=== PATIENT | male | born 1945 | race Caucasian/White ===

== ENCOUNTER 2017-01-30 21:48 | Inpatient (IN) | payer MEDICARE ==
--- NOTE | ~2017-01-30 | IDS ---
Interim Discharge Summary [facility] [address] [place]. [address] NAME: NO IRWIN : 43 STATUS : ADM IN PAT#: [id number] AGE: 71 ADM/REG DATE : 01/31/17 MR#: [id number] REPORT SERV DATE: 02/15/17 DICTATED BY: DATE: REPORT STATUS : Draft TRANSCRIBED BY: MODL DATE: 02/14/17 ADMISSION DATE: 01/31/2017 DISCHARGE DATE: [facility] Attending doctor, Dr. Richard Todd. CONSULTANTS: This week have included Neurology, Dr. Shea Bowman; and Infectious Disease, Dr. Toro Hernandez. CURRENT DIAGNOSES: 1. Multiple cerebrovascular accident-suspect embolic. 2. 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 3. Possible seizure on 02/10/2017-started on Keppra. 4. Multifactorial encephalopathy due to stroke, infection, and possible vasculitis due to central nervous system infection. 5. Paroxysmal atrial fibrillation and flutter-on a heparin drip, with Coumadin. 6. Coronary artery disease with recent stent. 7. Congestive heart failure with ejection fraction of 30%-ischemic cardiomyopathy, presently compensated. 8. Hypertension. 9. Gastroesophageal reflux disease. 10.Dysphagia-for Dobbhoff tube placement and possible PEG. 11.Generalized weakness-for eventual inpatient rehab. 12.Acute kidney injury today-possibly antifungal mediated. Recheck in the morning. IMAGIN. This week has included MRI of the brain on 02/07/2017 demonstrating new basal ganglia infarction, subacute right cerebral hemisphere infarction. Presence of both left and right distribution suggests embolic source. 2. Portable chest x-ray 02/08/2017, no evidence of acute cardiopulmonary disease. 3. CTA of the brain and neck with and without contrast on 02/10/2017 following seizures shows no significant stenosis or aneurysm. Moderate cortical volume loss and findings compatible with moderate chronic deep white matter ischemic changes. Stable ventriculomegaly, likely related to ex-vacuo dilatation from central volume loss. Known right cerebellar infarction is not well demonstrated on this exam. Calcified plaque involving proximal right internal carotid artery producing approximately 50% stenosis. Calcified plaque involving proximal left internal carotid artery producing 20% to 30% stenosis. No vertebral stenosis demonstrated. Reticulonodular opacity of the left lung apex, likely infectious or inflammatory. Largest discrete nodule measures 4 x [address] follow up CT scan of the chest in 12 months for further evaluation. PERTINENT LABS: This week have included today a creatinine of 1.47 on prior baseline 0.8 to 0.9. Troponin values this week 0.05 to 0.07. TSH 1.9. Free T4 of 1.25. Liver enzymes Interim Discharge Summary [address] [place]. [address] NAME: NO IRWIN : 43 STATUS : ADM IN PAT#: [id number] AGE: 71 ADM/REG DATE : 01/31/17 MR#: [id number] REPORT SERV DATE: 02/15/17 DICTATED BY: DATE: REPORT STATUS : Draft TRANSCRIBED BY: MODL DATE: 02/14/17 normal. Ammonia level normal. Cortisol 17.8. White blood cell count is high as 19.2 today, hemoglobin and hematocrit stable and demonstrating mild elevation. INR today 2.3. Cerebral spinal fluid, white blood cell count 70, with culture growing yeast, encapsulated, positive for cryptococcus with a titer of [id number]. BRIEF HISTORY: For full details, please see the previously dictated history of present illness by Dr. Adam Serrano. This is a 71-year-old white male, who was admitted with weakness, dizziness, altered mental status following a non-ST elevation CO and coronary stenting. He had been readmitted to [facility] following the cardiac procedures, and workup during that time was normal, including CT scan, MRI, echocardiogram, etc. Despite that the patient continued to do poorly and so they brought him to the [facility] for evaluation on 01/31/2017, and he was admitted for workup of these symptoms. HOSPITAL COURSE: For details of initial hospitalization, please refer to interim summary by Dr. Jennifer Ham for dates of service 01/31/2017 through 02/07/2017. Neurology consultation was obtained and the patient underwent imaging demonstrating acute CVA. The patient continued to be somnolent, with little improvement in mentation despite management of his strokes. Repeat MRI was obtained on 02/07/2017 demonstrating multiple embolic CVAs. Neurology recommended initiation of anticoagulation with Coumadin, although the patient had not demonstrated any arrhythmia on the monitor to that point in hospitalization, he was noted to have low ejection fraction with some paradoxic septal wall motion. Subsequently, the patient did develop some atrial fibrillation with rapid ventricular response on telemetry and was placed on a heparin drip in order to prevent further cardioembolic events. On the 02/09/2017, the patient's family reported that he may be having seizures. They noticed an event where he had a glazed overlook and seems to be staring into space and not recognizing them. Neurology did not recommend an antiepileptic medication that day, but then patient had a recurrent event on the 02/10/2017 which was more prolonged. Stat EEG was obtained that day and was negative for any specific epileptiform activity, but clinically, the patient was felt to have suffered a seizure and was started on Keppra by Neurology. CTA of the brain and neck was obtained that day as well and did not demonstrate any recurrence of CVAs nor bleeding on anticoagulation. The patient also had some leukocytosis noted that day, and so lumbar puncture was recommended and this occurred on 02/11/2017, with findings immediately suggestive of cryptococcal meningitis with a very high titer. Infectious Disease consultation was obtained that day and the patient was started on amphotericin B and flucytosine. He seemed to be tolerating these medications well over the past few days, but just today had an elevation of his creatinine. Unfortunately, despite three days of antifungal therapy, the patient's prognosis remains very guarded. He has continued to be quite sedate, unable to take in any oral medications or nutrition reliably. His family states that he is sometimes more interactive, seems to be smiling, and attempting to speak words, but does not always recognize them, and may be having some active hallucinations in that he will sometimes pick Interim Discharge Summary [address] [place]. [address] NAME: NO IRWIN : 43 STATUS : ADM IN [facility]#: [id number] AGE: 71 ADM/REG DATE : 01/31/17 MR#: [id number] REPORT SERV DATE: 02/15/17 DICTATED BY: DATE: REPORT STATUS : Draft TRANSCRIBED BY: MODL DATE: 02/14/17 at things that are not present or states that he sees children in the room. The overall prognosis is guarded and this was discussed with the patient's sons today. At present, there has not been any significant improvement in his mentation during the course of hospitalization, despite management of strokes and initiation of treatment for cryptococcal meningitis. The patient is becoming progressively weak and with poor p.o. intake. Labs today show increased in white blood cell count of unclear etiology and possible renal intolerance of antifungals. Dobbhoff tube will be placed for oral medications and for nutrition and the patient will need to be re-evaluated later in the week for possible PEG. Case was discussed with Dr. Hernandez who also believes the patient may require repeat lumbar puncture this week to evaluate for response to the current antifungal regimen. The patient had four bowel movements yesterday, and so stool studies have been requested, if loose, to check C. diff, PCR, fecal white blood cell count, stool Gram stain, culture, and stool ova and parasite. DISPOSITION: The patient remains hospitalized, to be followed by a colleague starting tomorrow, with eventual plan to discharge to rehab if there is any significant improvement in his mentation or ability to be a good rehab candidate. JUAN M/KATYA Richard Todd M.D. / [id number] CC: Ernie Haney M.D.
--- NOTE | ~2017-01-30 | HP ---
History And Physical [place] [id number] [facility] [place]. [address] NAME: NO CRUZ : 43 STATUS : ADM IN [facility]#: [id number] AGE: 71 ADM/REG DATE : 01/31/17 MR#: [id number] REPORT SERV DATE: 01/31/17 DICTATED BY: AMY OLSON DATE: 01/31/17 REPORT STATUS : Draft TRANSCRIBED BY: MODL DATE: 01/31/17 DATE OF ADMISSION: 01/31/2017 REASON FOR ADMISSION: Acute vertigo, intractable nausea, vomiting. HISTORY OF PRESENT ILLNESS: Mr. Cruz is a 71-year-old male with history of coronary artery disease who is status post stenting two weeks ago at [facility]. He was discharged on Coreg but he did not seem to tolerate it and actually had to be readmitted twice. In the interim time, he had began having nausea, vomiting, weakness, ever since discharge increasing dizziness with difficulty getting around. He went back to the hospital few days later, stayed for a few days, unclear exactly what all took place but was still unable to tolerate much p.o. Upon return home, he had to be readmitted once again on 01/29/2017, stayed overnight, received an MRI of the brain apparently during that hospitalization, but patient continues to feel sick and they came to this hospital for a second opinion. The patient says he does not feel dizzy when he is supine but feels extremely dizzy when he sits up with associated severe nausea and vomiting, mostly bilious with some red streaks have been noted. There has been no abdominal pain. He has generalized constipation. No chest pain or palpitations. No shortness of breath, coughing, or wheezing. He does note, however, headache and leg pain. He has had a worsened tremors ever since his recent hospitalization but he denies any focal neurological complaints. No visual changes. No speech or swallowing changes nor any changes in his weight. REVIEW OF SYSTEMS: Remainder of review of systems are negative. PAST MEDICAL HISTORY: As mentioned above. He denies a history of stroke. MEDICATIONS: Norvasc, aspirin, Coreg, Imdur, meclizine, Prilosec, Effient, Altace, and Crestor. ALLERGIES: TO MORPHINE. FAMILY HISTORY: Negative for strokes. SOCIAL HISTORY: The patient has no tobacco, alcohol, or drug history. PHYSICAL EXAMINATION: VITAL SIGNS: Upon presentation, blood pressure 190/87, pulse 67, respiration 18, afebrile. GENERAL: He is a mildly confused white male, oriented x3. No apparent distress. HEENT: Shows pupils equal, reactive to light. Extraocular movements were intact. He had dry mucous membranes. Normal oropharynx. He had no nystagmus and normal visual arriaga. He had opacified left tympanic membrane with a waxy substance on the tympanic membrane itself. NECK: Revealed flat jugular veins. No carotid bruit, lymphadenopathy, or goiter. CARDIAC EXAM: Regular rate and rhythm. No murmurs, gallops, or rubs. LUNGS: Clear to auscultation bilaterally with good excursion. ABDOMEN: Soft, nondistended, nontender. Bowel sounds normoactive but obese. History And Physical [address] [address] NAME: NO CRUZ : 43 STATUS : ADM IN [facility]#: [id number] AGE: 71 ADM/REG DATE : 01/31/17 MR#: [id number] REPORT SERV DATE: 01/31/17 DICTATED BY: AMY OLSON DATE: 01/31/17 REPORT STATUS : Draft TRANSCRIBED BY: KATYA DATE: 01/31/17 EXTREMITIES: No cyanosis, clubbing, edema. He had good pulses but delayed capillary refill. NEUROLOGIC: He had a severe tremor both at rest and with intention. He had very much difficulty with ueoxyc-ob-swno bilaterally, however, did have 5/5 strength in all four extremities. Normal sensory function x4. LABORATORY EVALUATION: Sodium 132, potassium 3.9, chloride 98, bicarb 28. BUN 26, creatinine 1.3, glucose 132, white count 9.5, H and H 16/43, platelets 301. Chest x-ray, no apparent disease. CT of brain showed severe atrophy. EKG showed septal lateral Q-waves. ASSESSMENT AND PLAN: 1. Acute vertigo, I suspect aortic cause. We will check a tilt treatment next, recommended IV fluids, symptomatic care. We will try get records regarding his recent neurological workup, we may consider an ENT evaluation. Further neuro assessments may or may not be indicated depending on what was done at [place], this may take a day or so to wrap up. 2. Intractable nausea, vomiting, likely due to the vertigo itself although dehydration from the nausea and vomiting may encourage dizziness. We will hydrate him aggressively, again try to get records regarding previous workup that has been done. The red streaks in the vomit are likely pharyngeal in origin. We will put him on IV Protonix, check an H and H q.4 h. and consult GI if indicated. 3. Coronary artery disease status post percutaneous intervention. The patient is dependent on antiplatelet agents at this time as well as carvedilol. Imdur, however, may have dizziness as a side effect, and this will be discontinued. 4. Hypertension; p.r.n. hydralazine is indicated. 5. Tremor, seems cerebellar in origin. However, negative MRI is reassuring. We will see if this improves with symptomatic relief, hydration etc. but however neurological workup may be indicated for that. JENNIFER/KATYA y Olson M.D. / [id number] CC: Ernie Haney M.D.
--- NOTE | ~2017-01-30 | CN ---
Consultation Report [facility] [address] [place] [place]. [address] NAME: NO IRWIN : 43 STATUS : ADM IN [facility]#: [id number] AGE: 71 ADM/REG DATE : 01/31/17 MR#: [id number] REPORT SERV DATE: 02/04/17 DICTATED BY: LORETO APPIAH DATE: 02/04/17 REPORT STATUS : Draft TRANSCRIBED BY: MODAsiya DATE: 02/04/17 NEUROLOGY CONSULTATION DATE OF CONSULTATION: 02/04/2017 REASON FOR CONSULTATION: Ataxia. HOSPITALIST: Jennifer Ham M.D. HISTORY OF PRESENT ILLNESS: The patient is a 71-year-old male who underwent stent placement at [facility] approximately two weeks ago. After discharge, he had a sudden onset of ataxia, nausea, vomiting, and weakness. According to his son, his nausea and vomiting were severe and he felt dizzy. When asked to describe dizzy, the patient stated that the room was spinning around. He was unable to eat and stayed home. In fact, the son mentioned that the patient was drowsy for a week afterwards. He also complained of a persistent severe headache. The patient was taken back to [facility] several times. After his stent placement, he was evaluated and sent home. He even had an MRI of the brain, which was "negative." The patient does not feel dizzy when he lays down flat, but when he sits up, he becomes extremely nauseated and vomits. He also feels that the room is spinning around. He is unable to stand up because he is very imbalanced. The son also mentions that the patient has tremors in his hands, which he has not had before. When questioned more extensively about the patient's history prior to his stent placement, the son mentions that he has mild dementia, but was able to function independently on his own. He had no issues with urinary incontinence and he had no ataxia, imbalance, or wide- based gait. PAST MEDICAL HISTORY: Coronary artery disease (status post stent placement), hypertension, GERD. PAST SURGICAL HISTORY: None. MEDICATIONS: Home medication list consists of Norvasc 5 mg daily, aspirin 81 mg daily, Coreg 6.25 mg b.i.d., Imdur 60 mg daily, Antivert 25 mg p.r.n., nitroglycerin p.r.n., Prilosec 20 mg daily, and Effient 10 mg daily. ALLERGIES: MORPHINE. SOCIAL HISTORY: The patient does not drink alcohol, smoke, or use recreational drugs. FAMILY HISTORY: Unable to obtain from the patient. REVIEW OF SYSTEMS: Unable to obtain from the patient. Consultation Report [facility] [address] [place]. [address] NAME: NO IRWIN : 43 STATUS : ADM IN PAT#: [id number] AGE: 71 ADM/REG DATE : 01/31/17 MR#: [id number] REPORT SERV DATE: 02/04/17 DICTATED BY: LORETO APPIAH DATE: 02/04/17 REPORT STATUS : Draft TRANSCRIBED BY: KATYA DATE: 02/04/17 PHYSICAL EXAMINATION: GENERAL: The patient is a 71-year-old male, who is somnolent, he will arouse to verbal stimuli. NEUROLOGIC: Pupils are 3 mm. He does have a dysconjugate gaze. EOMs are intact. He does have nystagmus. Speech is somewhat dysarthric. There is no aphasia. He is oriented to person only, not to place, time, or situation, and during the exam, he does drift back to sleep, but will arouse easily. Jcatfl-so-fvho: There is ataxia bilaterally, more prominent on the right than the left. No pronator drift. Upper extremity strength is 4/5 bilaterally. There are no reported sensory deficits. Upper DTRs are 1+ bilaterally. Lower extremity strength is 4/5 bilaterally. DTRs are 2+ bilaterally. No reported sensory deficits. The patient was unable to get up and ambulate. He is a total lift. NECK: No carotid bruits, JVD, or thyromegaly. CHEST: Lung sounds are clear. CARDIAC: Regular rate and rhythm. ASSESSMENT AND PLAN: 1. Probable stroke, most likely in the cerebellar or brainstem region. The patient will undergo MRI of the brain with and without gadolinium and MRA of the head and neck. He will have an echocardiogram. His continue aspirin 81 mg and Effient since he was placed on these after his stent placement, and he will be placed on Lipitor 80 mg at bedtime. 2. Other differential diagnoses include hypertensive encephalopathy, (posterior reversible encephalopathy syndrome). 3. 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 4. Possible subclinical seizure activity. 5. The patient has migraine headaches. At this point, we will give him a Depakote cocktail, which will include Depakote 500 mg IV plus Compazine 5 mg IV plus Toradol 30 mg IV. Thank you for including us in consultation. HALEIGH/KATYA Loreto Appiah DNP, [facility] / [id number] CC: Ernie Cole M.D.
--- NOTE | ~2017-01-30 | CN ---
Consultation Report [facility] [address] [place]. [address] NAME: NO IRWIN : 43 STATUS : ADM IN PAT#: [id number] AGE: 71 ADM/REG DATE : 01/31/17 MR#: [id number] REPORT SERV DATE: 02/16/17 DICTATED BY: THERESA GARZA JR DATE: 02/16/17 REPORT STATUS : Draft TRANSCRIBED BY: MODL DATE: 02/16/17 CONSULTATION DATE OF CONSULTATION: REASON FOR CONSULTATION: Acute kidney injury. HISTORY OF PRESENT ILLNESS: This is a 71-year-old male patient, who is currently inpatient in the IMCU at [facility]. He was recently evaluated in the outpatient setting at [facility] in [place], by his 's recollection on three different occasions. Each complaint apparently was isolated around complaints of disequilibrium, nausea, and vomiting. He was assessed eventually here at [facility] by Dr. Serrano on or around . He was placed inpatient at that time for further supportive care and evaluation workup. His creatinine on 01/30/2017, was 1.34, evaluation of his creatinine on midnight was at 1.12. Subsequent further workup by Neurology indicated CVA on imaging. He was seen by Neurology, secondary to altered mentation. 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 He was provided IV ampho, secondary to fungal infection and received dosing by records here on 02/11/2017 through 02/14/2017 at 400 mg IV q.24 hours. He also received Toradol x4 doses at 15 mg, last dosing on 02/14/2017, Toradol at 30 mg x8 doses with last dosing on 02/09/2017. He is chronically maintained in the outpatient setting on Altace, and this was continued here, and discontinued on 02/11/2017. The patient has been evaluated by GI Services with possibility of an indwelling PEG tube. His mentation though was stated to improved, but still very diminished at this point. Neurology continues to follow the patient, as well as Infectious Disease, and Hospitalist Service. We were asked to evaluate the patient today for creatinine of 2.11. Baseline appears to be historically somewhere around 1.0. It is difficult however given current records to evaluate his baseline creatinine as the patient has no other records available here at [facility] outside of this current hospitalization. The patient is lying in bed this afternoon. He is awake and responsive to some verbal interaction, but is not able to verbalize or provide meaningful interaction and movement. His family is at bedside during evaluation and much of his medical data comes from assistance and recollection from his family. PAST MEDICAL HISTORY: Positive for events reflected in HPI with vertigo, and nausea and vomiting, recent history of chest pain evaluated at [facility], with cardiac catheterization with unknown date, with stent placement, recent diagnosis of cryptococcal meningitis as above, altered mentation, CVA, possible seizure on 02/10/2017, with initiation of Keppra, paroxysmal atrial fibrillation, and progressive encephalopathy. REVIEW OF SYSTEMS: Unable to be completed, due to current medical state with the patient. Again, much of his medical data is provided with the assistance of his family. Consultation Report [place] [id number] [facility] [place]. [address] NAME: NO IRWIN : 43 STATUS : ADM IN [facility]#: [id number] AGE: 71 ADM/REG DATE : 01/31/17 MR#: [id number] REPORT SERV DATE: 02/16/17 DICTATED BY: THERESA GARZA JR DATE: 02/16/17 REPORT STATUS : Draft TRANSCRIBED BY: KATYA DATE: 02/16/17 ALLERGIES: HE LISTS ALLERGIES TO MORPHINE. ACTIVE MEDICATIONS: Tylenol 650 mg p.o. at 2100, Norvasc 10 mg p.o. at bedtime, ASA 81 mg daily, Lipitor, atorvastatin 80 mg p.o. at bedtime, Coreg 12.5 mg p.o. b.i.d., Protonix 40 mg ACB, potassium chloride 20 mEq b.i.d., thiamin 100 mg p.o. daily, Coumadin via sliding scale, ampho B/AmBisome 400 mg IV daily, Keppra 750 mg IV q.12, p.r.n. medications for antiemetic, antihypertensive, and electrolyte protocol. PHYSICAL EXAMINATION: VITAL SIGNS: Blood pressure 138/85, temperature 98.0, Pulse is 78, respirations at 28. GENERAL: He is a chronically ill-appearing male patient, lying in bed during evaluation. HEENT: Normocephalic and atraumatic. Normal ocular movements. No scleral icterus. No conjunctival pallor is appreciated. NECK: Supple without thyromegaly. No JVD or mass. CHEST: Shows positive S1 and S2. No rubs or gallops. LUNGS: Diminished throughout. Normal expansion and effort bilaterally. GASTROINTESTINAL: Shows positive bowel sounds in all four quadrants. No appreciable mass or tenderness. GENITOURINARY: Deferred. He does have a Pritchett catheter to bedside drainage that has minimal clear yellow urine. NEUROLOGIC: He shows quite a great amount of deficits with noted previous CVAs, as well as the cryptococcal meningitis. Previous mental status baseline appears to be intact prior to these recent events. SKIN: Warm, dry, and intact to visualized surfaces. No rash, lesions, or ecchymosis. PSYCHIATRIC: His mood and affect are unable to be tested. LABORATORY DATA: Pertinent laboratories and imaging to this evaluation are as follows. Sodium 154.4, potassium chloride 120, CO2 22, BUN 50, creatinine 2.11, glucose of 117, magnesium 2.7, albumin 2.7, ALT 68, AST 28. Hematology; white count 11.7, hemoglobin 15.0, hematocrit 43.0, platelets at 180. IMPRESSION AND PLAN: This is a 71-year-old male patient, admitted to the Hospitalist Service. Baseline creatinine appears to be around 1.0, with recent medical events as listed above in HPI. He was evaluated on separate occasions at [facility] with complaints as listed nausea, vomiting, and disequilibrium. He was admitted here on 01/31/2017, with primarily the same complaint. During his outpatient evaluations, he remained on Altace as listed above and continued on that medication on entry. He was also dosed with Toradol at 15 and 30 mg here, along with ampho B post admission. It appears his last dosage of Altace was on 02/11/2017. His last dose of Toradol was on 02/14/2017. He does not show hypotensive values on his blood pressure readings, he continues to have neuro deficits at this point, likely secondary to his current cryptococcal meningitis. At this point, his renal function appears to be effective by multiple factors. He is likely somewhat dry and has an injury, secondary to his ongoing nausea and vomiting, which are possibly aggravated by continued outpatient dosing, during the episodes of nausea vomiting Consultation Report [place] [address] [place]. [address] NAME: NO IRWIN : 43 STATUS : ADM IN PAT#: [id number] AGE: 71 ADM/REG DATE : 01/31/17 MR#: [id number] REPORT SERV DATE: 02/16/17 DICTATED BY: THERESA GARZA JR DATE: 02/16/17 REPORT STATUS : Draft TRANSCRIBED BY: KATYA DATE: 02/16/17 in the outpatient setting, plus Toradol dosing here, as well as the possibility of ampho B involvement. He has been evaluated for a PEG tube. At this point, it is unclear the current trajectory of that plan. He is currently not receiving IV fluids. We will initiate D5 lactated Ringer's to provide him assistance with hydration. Medications currently have been amended and ampho B, as well as Altace, and Toradol have been stopped, I would going forward avoid VIRGILIO inhibitors, as well as ARB, and NSAIDs. Antibiotics will continue to be deferred to the Infectious Disease team as before. Antiemetic medications will be used to provide assistance with nausea and vomiting. Undertake renal ultrasound. Check urine studies, urine creatinine, urine sodium, urine urea. Place the patient on strict I's and Os, daily weights, and monitor him very closely. Currently, he does not present an acute need for hemodialysis and he will be re-evaluated on an ongoing fashion by our Service and follow closely. Further modification of treatment plan may be made based on the clinical presentation of the patient, laboratory results, further consultation with renal attending. We appreciate the consultation and we are glad to follow. DICTATED BY: Marcellus Caruso NP JR/KATYA Theresa Garza Jr, M.D. / [id number] CC: Jennifer Ham M.D.
--- NOTE | ~2017-01-30 | DS ---
Discharge Summary [facility] [address] [facility] [place]. [address] NAME: NO IRWIN : 43 STATUS : DIS IN PAT#: [id number] AGE: 71 ADM/REG DATE : 01/31/17 MR#: [id number] REPORT SERV DATE: 02/19/17 DICTATED BY: SYEDA RUANO DATE: 02/18/17 REPORT STATUS : Draft TRANSCRIBED BY: MODL DATE: 02/18/17 ADMISSION DATE: 01/31/2017 DISCHARGE DATE: 02/18/2017 SUMMARY. DATE OF : 02/18/2017 at 05:59 p.m. Immediate cause of is respiratory failure, approximate onset is about 6 to 12 hours. CAUSE: Multiple CVA, could be embolic, could be ischemic. However, this involved the cerebellum, bilateral basal ganglia, also the erasmo. Most of these are acute, but the cerebellar infarct is subacute that happened a few weeks ago. DIAGNOSES: 1. Cryptococcal meningitis that was diagnosed on 02/11/2017. 2. Ischemic cardiomyopathy with an ejection fraction of 30%. 3. Acute kidney injury. 4. Multifactorial encephalopathy. 5. Recent NSTEMI. CONSULTS DURING THIS HOSPITALIZATION: Include: 1. Infectious Disease consult by Dr. Toro Hernandez for the cryptococcal meningitis. 2. Neurologist, Dr. Israel Durand, for the multiple areas of stroke likely embolic. 3. Cardiology consult by Dr. Julian Duque for frequent beats of ventricular tachycardia that the patient had likely from ischemic cardiomyopathy and recent NSTEMI and other comorbidities that the patient has currently. 4. Palliative Care consult by Dr. Connell. BRIEF HOSPITAL COURSE: I took over care of this patient on 02/15/2017. Up until 02/15/2017, please refer to intermittent discharge summary that has been dictated by Dr. Todd. BRIEF COURSE IN THE LAST THREE DAYS: The patient is a very unfortunate otherwise healthy 71- year-old patient who suffered an NSTEMI about a month ago and underwent PCI. The patient also probably around the same time had gait instability and imbalance and some drowsiness for which the patient's family brought him back to [facility]. Probably, around this time, the patient may have suffered a cerebellar infarct because at this time MRI of the brain did show cerebellar infarct, small one on the right side. The patient in the meantime was consulted by Neurology, and as they suspected cardioembolic stroke in this gentleman, heparin was begun. In addition to that Cardiology was also consulting. In the interim, the patient was diagnosed with cryptococcal meningitis on 02/11/2017 and seizures probably related to the cryptococcal meningitis itself and begun on Keppra on 02/10/2017. When I took over this patient's care back again on 02/15/2017, the patient's mental status kept going downhill and he was extremely encephalopathic. Because of this, we moved him to the [facility]. Dr. Toro Hernandez who is consulting suggested that an LP Discharge Summary [address] [address] NAME: NO IRWIN : 43 STATUS : DIS IN PAT#: [id number] AGE: 71 ADM/REG DATE : 01/31/17 MR#: [id number] REPORT SERV DATE: 02/19/17 DICTATED BY: SYEDA RUANO DATE: 02/18/17 REPORT STATUS : Draft TRANSCRIBED BY: KATYA DATE: 02/18/17 may be therapeutic in this gentleman if he does have an increased intracranial pressure because of the meningitis per se. Hence, we decided to do an LP. The patient's heparin was stopped, and his Coumadin was interrupted too for this. For about 24 to 48 hours, the patient was not on any anticoagulation, and his INR dropped to 1.5 and the patient did undergo an LP. After this, the patient's mental status still continued to decline. He had periods of being alert but still very agitated and confused and periods of being extremely lethargic. He continued to be in the IMCU. Again, his encephalopathy was thought to be multifactorial given the history of multiple acute and subacute infarcts in various areas of the brain, cryptococcal meningitis, vasculitis, and also seizures from all the above. Overall, his prognosis was deemed to be very poor. On 02/18/2017, the patient started developing respiratory distress in the morning. He was put on at least 5 L of oxygen but despite that the patient could not clear his secretions in the lungs. In the meantime, Nephrology also was consulted as he had acute kidney injury probably from the ischemic cardiomyopathy itself, but however, as the patient needed to be on amphotericin B for the cryptococcal meningitis, Nephrology was consulted, so fluids could be managed and kidney damage could be alleviated in this gentleman. In the meantime, we also started him on Dobhoff feeds with Nepro. The patient's mental status, however, continued to decline and his respiratory status continued to decline also. All this while after multiple discussions with family, the patient was initially made a Do Not Intubate only. In the last 24 hours, all of the patient's family including son's felt that he needed to be kept comfortable only as his wishes were to be kept comfortable when he was alive and had a good life. Hence, Palliative Care was consulted. After this, the patient's code status was made a Do Not Resuscitate. Within a few hours of consulting Palliative Care, the patient's respiratory status went downhill even more. The patient did not receive any sedatives or any morphine or any other form of BEHAVIORAL HEALTH AIDE depressants at this time, but by himself started declining even more. His blood pressure dropped, heart rate dropped, and respiratory rate dropped. I was called around 05:35 p.m. saying that his heart rate had dropped to the 40s and his respiratory rate was barely 8-10. Around 05:59 p.m., however, the nurse called me to pronounce the patient at the bedside as the patient had passed. I went to examine the patient, and upon exam, the patient has no response to any verbal or painful or any other stimuli. Pupils are fixed and dilated. No respiratory sounds or no cardiac sounds are audible at this time. The patient was pronounced at 05:59 p.m. on 02/18/2017. DICTATED BY: Ernie Cole/PELONL Syeda Ruano M.D. / [id number] CC: Syeda Ruano M.D. Discharge Summary [address] [address] NAME: NO IRWIN : 43 STATUS : DIS IN [facility]#: [id number] AGE: 71 ADM/REG DATE : 01/31/17 MR#: [id number] REPORT SERV DATE: 02/19/17 DICTATED BY: SYEDA RUANO DATE: 02/18/17 REPORT STATUS : Draft TRANSCRIBED BY: MODL DATE: 02/18/17 Jere Fields M.D.
--- NOTE | ~2017-01-30 | CN ---
Consultation Report [facility] [address] [place]. [address] NAME: NO CRUZ : 43 STATUS : ADM IN [facility]#: [id number] AGE: 71 ADM/REG DATE : 01/31/17 MR#: [id number] REPORT SERV DATE: 02/18/17 DICTATED BY: JULIAN LIRIANO DATE: 02/17/17 REPORT STATUS : Draft TRANSCRIBED BY: MODL DATE: 02/17/17 DATE OF CONSULTATION: 02/17/2017 REASON FOR ADMISSION: Altered mental status, dizziness. REASON FOR CONSULTATION: Nonsustained VT, coronary artery disease, status post recent intervention. HISTORY OF PRESENT ILLNESS: Mr. Cruz is an extremely complex 71-year-old gentleman who has had a very long hospital stay here for the majority of the months. Briefly, he was initially admitted from [facility] where he presented with nonspecified symptoms including dizziness, weakness, nausea, and vomiting, which all started following recent stenting x2 to a probable in-stent restenosis of his OM on 01/19/2017 at [facility]. I reviewed the records directly, and they are poorly kept, without clear outline of what exactly was done as the intervention. However, following the stent intervention at the end of December, the patient developed these symptoms and presented for further evaluation and care. After workup here, he was found to eventually have cryptococcal meningitis of unclear etiology to date, complicated with multiple CVAs subacute and acute, seizures, kidney injury, and multifactorial encephalopathy. During his stay here, he did have at least one episode of paroxysmal atrial fibrillation in this setting on approximately 02/09/2017, and most recently, a 20-beat run of nonsustained VT just earlier today, prompting re-consultation for Cardiology eval and input. Of note, the initial consultation was not called in or received, therefore, the patient has not been seen by Cardiology prior to this date at [facility]. The patient is currently on full therapy per Infectious Disease for cryptococcal meningitis, however, he has not shown much improvement from a neurologic perspective, therefore discussions regarding goals of care are anticipated by the primary team per my discussion with the nurse. ALLERGIES: UNABLE TO OBTAIN GIVEN THE PATIENT'S CLINICAL STATUS. FAMILY HISTORY: Unable to obtain given the patient's clinical status. SOCIAL HISTORY: Unable to obtain given the patient's clinical status. However, the patient has extensive family present in the room and it is evident he is very well supported. Prior to this admission, he was a functional and overall moderately healthy gentleman. REVIEW OF SYSTEMS: Unable to obtain secondary to the patient's clinical status. MEDICATIONS: Currently given in the hospital include; 1. Acetaminophen. 2. Amlodipine. 3. Aspirin. 4. Lipitor. 5. Coreg. Consultation Report [address] [place]. [address] NAME: NO CRUZ : 43 STATUS : ADM IN PAT#: [id number] AGE: 71 ADM/REG DATE : 01/31/17 MR#: [id number] REPORT SERV DATE: 02/18/17 DICTATED BY: JULIAN LIRIANO DATE: 02/17/17 REPORT STATUS : Draft TRANSCRIBED BY: KATYA DATE: 02/17/17 6. Keppra. 7. Pantoprazole. 8. Thiamine. 9. Coumadin. PHYSICAL EXAMINATION: VITAL SIGNS: Blood pressure 129/68; pulse 76, sinus rhythm; temperature 97.3. GENERAL: No acute distress. Spontaneously arousable, generally somnolent. NEURO: Awake, alert and oriented x3; no focal deficits, appropriate mood. HEENT: Normocephalic, atraumatic. Dobhoff noted in the nasal cavity. NECK: No JVD, no carotid bruit. LUNGS: Clear to auscultation bilaterally, no wheezes, rales or rhonchi. CV: Regular rate and rhythm. Normal S1, S2. 2/6 systolic murmur at the left sternal border. ABD: Soft, non-tender, non-distended, no rebound or guarding. EXT: No pitting edema, normal distal pulses. SKIN: Warm, dry and intact; no rash. PERTINENT TEST FINDINGS: Potassium 3.8, sodium 154, creatinine 1.96. White blood cell count 13.2, hemoglobin 15.0. Troponin 0.07. BNP 69. Tele with sinus rhythm and approximately 20 beat run of nonsustained VT. IMPRESSION AND PLAN: Mr. Cruz is a very unfortunate 71-year-old gentleman with a history of ischemic cardiomyopathy (EF 30%-40%), coronary artery disease status post recent percutaneous coronary intervention to obtuse marginal for in-stent restenosis (01/19/2017 at [facility]) with new symptoms of altered mental status and dizziness as well as weakness. Following stent intervention, found to have cryptococcal meningitis, complicated with multiple subacute and acute strokes, seizures, as well as encephalopathy, and kidney injury. During his course here, he had at least one episode of paroxysmal atrial fibrillation and nonsustained ventricular tachycardia, most recently earlier today. Of note, I see that his prasugrel was discontinued for unclear reasons on 02/08/2017, which was the date of his last dose of this medication. Otherwise, he currently remains off Coumadin and heparin in anticipation of a possible PEG tube. Accordingly, I have the following recommendations by problem below: 1. Cryptococcal meningitis - Manage per Neurology and Infectious Disease. 2. Multiple strokes - Manage per Neurology. 3. Poor prognosis - Discuss goals of care, as he would likely benefit from deceleration at this point. 4. Coronary artery disease status post recent obtuse marginal intervention - Full details not known, however, he did have two stents placed on 01/19/2017 at [facility]. In light of this, I recommend resumption of prasugrel 10 mg p.o. daily as it has been less than one month since his stent intervention. 5. Paroxysmal atrial fibrillation - Currently in sinus rhythm. I recommend starting heparin drip at the minimum for therapeutic anticoagulation if safe from a neurologic perspective while awaiting possible PEG tube placement. If PEG tube is not going to be Consultation Report [place] [id number] [facility] [place]. [address] NAME: NO CRUZ : 43 STATUS : ADM IN [facility]#: [id number] AGE: 71 ADM/REG DATE : 01/31/17 MR#: [id number] REPORT SERV DATE: 02/18/17 DICTATED BY: JULIAN LIRIANO DATE: 02/17/17 REPORT STATUS : Draft TRANSCRIBED BY: MODAsiya DATE: 02/17/17 placed and his ultimate goal of care is not for DNR status, then it may be fine to start him on chronic Coumadin therapy for PAF. 6. Nonsustained ventricular tachycardia - Up titrate Coreg to 18.75 mg p.o. b.i.d. VR/KATYA Julian Liriano MD / [id number] CC: Jennifer Ham M.D.
--- NOTE | ~2017-01-30 | IDS ---
Interim Discharge Summary [address] [place]. [address] NAME: NO IRWIN : 43 STATUS : ADM IN PAT#: [id number] AGE: 71 ADM/REG DATE : 01/31/17 MR#: [id number] REPORT SERV DATE: 02/08/17 DICTATED BY: SYEDA RUANO DATE: 02/07/17 REPORT STATUS : Draft TRANSCRIBED BY: MODL DATE: 02/07/17 ADMISSION DATE: 01/31/2017 DISCHARGE DATE: This patient will be taken over by my colleague on 02/08/2017. DIAGNOSES: So far, 1. Acute vertigo, gait imbalance, and incoordination that the patient came in with because of an acute cerebellar stroke. The patient has had an acute stroke in the right cerebellar area. 2. Ongoing somnolence which is a puzzle in this patient. This could be because of the anti-seizure medications or anti-epileptic drugs that Neurology has him on, but Neurology is aware and they have asked for another repeat MRI of the brain to see if his cerebellar stroke is worsening. 3. Very recent non-ST segment elevation myocardial infarction, status post cardiac catheterization and stent placement less than 2 weeks ago. The patient apparently probably had a stroke and the WA both at the same time. BRIEF HOSPITAL COURSE: The patient is a very pleasant, 71-year-old male patient, with little medical history in the past, who suddenly became sick and had to be admitted to the hospital about 2 weeks ago at [facility] with NSTEMI and had to undergo coronary angiogram and coronary stenting at that time. Family is very supportive and all his 3 sons say that after returning home, the patient continued to be very dizzy, nauseated with vomiting, and was very somnolent also. The patient also had a gait imbalance apparently. Hence, the family brought him back. He was re-admitted and workup during this hospitalization revealed actually that the patient's CT scan was normal. However, further workup led to consultation by Neurology, who suggested an MRI, that finally revealed the source of his dizziness, vertigo, gait imbalance, incoordination, and encephalopathy. The patient did have a right cerebellar stroke. Now, Neurology is handling and managing this case and for some reason, the patient's somnolence is not letting up at all. Neurology has him on an antiepileptic drug cocktail, however, they may be willing to adjust this and they are in the process of doing it based on what his repeat MRI will show today. Next, his blood pressure control initially was difficult, but right now his blood pressure is under fairly good control with the current regimen of medications. Most of his medications are being handled by Neurology at this time. His coronary artery disease is not an acute issue, at least at this time. This patient's care will be taken over by my partner on 02/08/2017, and eventually the disposition for this patient will definitely be to an inpatient rehab facility of family's choice when his encephalopathy somewhat improves and he is ready to go on. RRA/KATYA Syeda Ruano M.D. Interim Discharge Summary [address] [address] NAME: NO IRWIN : 43 STATUS : ADM IN PAT#: [id number] AGE: 71 ADM/REG DATE : 01/31/17 MR#: [id number] REPORT SERV DATE: 02/08/17 DICTATED BY: SYEDA RUANO DATE: 02/07/17 REPORT STATUS : Draft TRANSCRIBED BY: KATYA DATE: 02/07/17 / [id number] CC: Ernie Cole M.D.
--- NOTE | ~2017-01-30 | CN ---
Consultation Report [facility] [address] [place]. [address] NAME: NO IRWIN : 43 STATUS : ADM IN PAT#: [id number] AGE: 71 ADM/REG DATE : 01/31/17 MR#: [id number] REPORT SERV DATE: 02/11/17 DICTATED BY: TORO FENOTN DATE: 02/11/17 REPORT STATUS : Draft TRANSCRIBED BY: MODL DATE: 02/11/17 INFECTIOUS DISEASE CONSULT DATE OF CONSULTATION: 02/11/2017 REASON FOR CONSULT: Cryptococcal meningitis. HISTORY OF PRESENT ILLNESS: A 71 years old white man with history of coronary artery disease, hypertension, asthma, and cholecystectomy who was admitted to [facility] on 01/31/2017 for orthostatic dizziness, nausea, vomiting, and headaches. The history is obtained from the chart and from the patient's son. Currently, the patient is unable to discuss. The patient has remote history of myocardial infarctions and coronary stenting. Apparently, he had known heart failure. On 01/18/2017, he was admitted at [facility] in [facility] with chest pain. He was found to have coronary blockages so he had stents placed in the proximity of some old stents. Prior to this, apparently the patient was more tired than usual, maybe more shuffling gait, but no headache, no fever. He takes care of his who has medical problems. He is still able to do some yard work although he would get tired easily. After he was released from the hospital in December, apparently he developed dizziness, nausea, vomiting, weakness, headaches, drowsiness. The family took him back to [facility] initially to ER, then later he was actually admitted. I understand no cause was found. He had some medication adjustments, IV fluids, and then was discharged home. After going home, he was still unable to walk unless he was holding on to things and then he had dry heaving and then vomiting. Son decided to bring him to [facility] on 01/31/2017. According to the H and P, he had complaints of orthostatic dizziness triggering nausea and vomiting. He had headaches and tremors. No fever, no shortness of breath. He had some constipation. Lab work on admission; WBC was 9, creatinine 1.3, hemoglobin 16. Eventually, an MRI of the brain showed acute or subacute right cerebellar stroke described as tiny in the watershed area. There is no sinus or mastoid disease. An MRA of the head showed right MCA atherosclerosis, and EEG showed some asymmetric slowing. The patient apparently had problems with somnolence and headaches, and he was given medication mix called Headache Cocktail that included Depakote and Toradol. He had an echocardiogram because of concerns for source of emboli. This showed a low ejection fraction of 30% and large area of hypokinesia in the anterior heart. Because of persistent headaches and somnolence, he had another MRI on 02/07/2017 without contrast that showed a new left basal ganglia, acute infarction. A CTA showed plaque in both internal carotids with 50% stenosis on the right and 30% stenosis on the left. There also was a small area of reticular nodular infiltration in the left apex of the lung. The patient has had some mild leukocytosis. His mental status was a little better after some medications adjustment. Today, he had a spinal tap. Opening pressure could not be recorded but the parameters showed meningitis with monocytic pleocytosis. The white blood Consultation Report [address] [address] NAME: NO IRWIN : 43 STATUS : ADM IN [facility]#: [id number] AGE: 71 ADM/REG DATE : 01/31/17 MR#: [id number] REPORT SERV DATE: 02/11/17 DICTATED BY: TORO FENTON DATE: 02/11/17 REPORT STATUS : Draft TRANSCRIBED BY: KATYA DATE: 02/11/17 cell count was 70, monocytes 59%. Interestingly, red blood cells were high at 1000, glucose is extremely low at 2, and protein is high at 197. Heydi ink showed fungal organisms, and I am told that the CSF cryptococcal antigen was positive. The density titer was not done yet. I saw the patient after the LP, and he is somnolent. He actually is not talking to me. He does not really open eyes. I discussed with the son. PAST MEDICAL HISTORY: As I mentioned above. ALLERGIES: LISTED MORPHINE WAS CAUSING MENTAL STATUS CHANGES. MEDICATIONS ON ADMISSION: Amlodipine, aspirin, carvedilol, Imdur, meclizine, omeprazole, Effient, ramipril, and Crestor. SOCIAL HISTORY: Quit smoking in 2003 after 40 years. He does not abuse alcohol. Does not use marijuana. He is . He has been retired for a long time. He has two pet dogs. No exposure to birds. He did some yard work. Takes care of his . FAMILY HISTORY: Heart disease and hypertension. PHYSICAL EXAMINATION: HEENT: Oral mucosa seems to be dry. Sclerae are white. Pupils are small but reactive to light. Cannot do a full oral exam, he would not cooperate with that. LUNGS: Decreased sounds with poor inspiratory effort. No wheezes, rhonchi, or rales. HEART: Regular rhythm with a soft murmur in all areas. ABDOMEN: Compressible. Seems nontender to palpation. SKIN: Without rash. EXTREMITIES: He seems to move at least his arms. He reacts to stimulation of his soles bilaterally. LAB WORK: Today, procalcitonin not elevated. Creatinine 0.8. Liver enzymes yesterday were within normal limits. WBC 14, hemoglobin 16, and INR 1.5. 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 2. Multiple small strokes or at least two. Interestingly, the son reports that the neurologic symptoms started after the recent cardiac cath with stent placements done on 01/18/2017. This brings the question whether the strokes are related to this procedure and the stent or is it related to the infection. Also, he has some atherosclerotic carotid disease. 3. Congestive heart failure. 4. Hemoglobin is quite high for his age although he does not appear to have an erythrocytosis. We will follow up the CSF fungal culture. I will start lipid amphotericin B and flucytosine but have to monitor closely the renal function, the electrolytes, blood cell counts and to Consultation Report [address] [place]. [address] NAME: NO IRWIN : 43 STATUS : ADM IN [facility]#: [id number] AGE: 71 ADM/REG DATE : 01/31/17 MR#: [id number] REPORT SERV DATE: 02/11/17 DICTATED BY: TORO FENTON DATE: 02/11/17 REPORT STATUS : Draft TRANSCRIBED BY: KATYA DATE: 02/11/17 watch for fluid overload since we typically use fluid with the amphotericin in order to protect the kidneys, however, the CSF parameters were quite worrisome with glucose of 2. We will follow up on the cryptococcal antigen titer. If indeed he had strokes and has neurologic deficits, the prognosis is guarded. He might have further deficits. I discussed with the son, discussed earlier with Dr. Todd, and traffic control technician. I discussed with the pharmacy. I reviewed the computer records and the chart. PC/MODL Toro Fenton M.D. / [id number] CC: Ernie Haney
--- NOTE | ~2017-01-30 | EEG ---
Electroencephalogram [facility] [address] [place]. [address] NAME: NO IRWIN : 43 STATUS : ADM IN PAT#: [id number] AGE: 71 ADM/REG DATE : 01/31/17 MR#: [id number] REPORT SERV DATE: 02/10/17 DICTATED BY: DATE: REPORT STATUS : Draft TRANSCRIBED BY: MODL DATE: 02/10/17 NEUROLOGY EEG REPORT CLINICAL INDICATIONS: Staring episodes and loss of consciousness. DESCRIPTION: This EEG was performed using 10/20 electrode placement system. During the EEG study, symmetric background activity was noted with predominant occipital rhythm of roughly 8 hertz. Muscle artifact was seen throughout the EEG study. Photic stimulation was performed. Hyperventilation was not performed secondary to the patient's underlying medical condition. The patient achieved drowsy state during the EEG study. INTERPRETATION: This EEG study obtained during awake and drowsy state may be considered normal. No seizure activity, seizure discharge, or focal abnormality was otherwise noted. Normal EEG does not preclude the diagnosis of seizure disorder. Clinical correlation is otherwise recommended. [facility]/KATYA Henry Bowman MD / [id number]
--- NOTE | ~2017-01-30 | CN ---
Consultation Report [facility] [address] [place]. [address] NAME: NO CRUZ : 43 STATUS : ADM IN PAT#: [id number] AGE: 71 ADM/REG DATE : 01/31/17 MR#: [id number] REPORT SERV DATE: 02/16/17 DICTATED BY: MARIO CROFT DATE: 02/16/17 REPORT STATUS : Draft TRANSCRIBED BY: MODL DATE: 02/16/17 GI CONSULTATION DATE OF CONSULTATION: 02/16/2017 REASON FOR CONSULTATION: Evaluation and management of possible PEG tube placement. HISTORY OF PRESENT ILLNESS: It should be noted that the history of present illness has been gathered from the chart, [employer] review, as well as talking to the patient's son who was present at the bedside. Mr. Cruz presented to [facility] on 01/31/2017 with a chief complaint of vertigo, nausea with vomiting. He has a recent history of chest pain, being seen at [facility]. Two weeks prior to presentation here, he underwent a cardiac cath, he had stents placed, and was subsequently discharged. He had episode of nausea, vomiting, weakness, dizziness, difficulty in ambulating. He was taken back to [facility]'s Emergency Room where they gave him antiemetics and sent him home. The son states he did not improve. He was taken back there an additional time which he was admitted. No true diagnosis was given. He was subsequently discharged. Within 6 hours of returning home, the patient's symptoms worsened with weakness, nausea, vomiting, ataxia. Subsequently, he was brought into [facility]. He has since that time been evaluated by Neurology as well as Infectious Disease. 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 He also has been diagnosed with cryptococcal meningitis, this diagnosis came on 02/11/2017, and he was started on amphotericin and flucytosine and he has only had minimal improvement to that. Those have since been discontinued, and he is on fluconazole at present. Those were discontinued secondary to renal dysfunction. He also had a possible seizure on 02/10/2017 and was started on Keppra. He has encephalopathy that is likely multifactorial including his stroke, his possible vasculitis, and infection. He has a history of paroxysmal atrial fib and has been on a heparin drip as well as Coumadin that has since been discontinued in anticipation of a lumbar puncture to be done today. He has been unable to the eat, and in the interim, he has had a Dobbhoff tube placed for enteral nutrition. The patient's status has continued to deteriorate with change in respiratory status as well as progressive encephalopathy. He was transferred to the [facility] yesterday for closer care. He has been evaluated by Infectious Disease as well as Neurology again, and he had a repeat MRI of the brain done on the 02/15/2017. This MRI showed a small 3 mm acute ischemic infarct, superior right occipital lobe cortex, 4.5 mm acute ischemic infarct in the internal capsule of right basal ganglia, and a 3 mm acute ischemic infarct in the posterior left erasmo, which was new from his previous MRI. No associated hemorrhagic changes or mass effect. He had a subacute 8 mm infarct in the left basal ganglia and a 4 mm old lacunar infarct of the left basal ganglia. Secondary to the progression of his status, he has been set up for a repeat lumbar puncture today for possible increased intracranial pressure, and GI consultation was obtained for possible PEG tube placement. I have discussed with the patient's son and his [id number] who were present at the bedside. At this point in time, I do not feel it is safe for the patient to undergo anesthesia to have the PEG tube placed. He does have the Dobbhoff tube at present for tube feeding. We will reassess the patient daily and evaluate Consultation Report [address] [place]. [address] NAME: NO CRUZ : 43 STATUS : ADM IN [facility]#: [id number] AGE: 71 ADM/REG DATE : 01/31/17 MR#: [id number] REPORT SERV DATE: 02/16/17 DICTATED BY: MARIO CROFT DATE: 02/16/17 REPORT STATUS : Draft TRANSCRIBED BY: MODL DATE: 02/16/17 his status and determine when it is safe for the patient to undergo endoscopic placement of the PEG tube. I did discuss the risks, benefits, alternatives, and complications with the patient's son and [id number] at the bedside to include but not limited to risk of bleeding, perforation, infection, reaction to medication, as well as cardiac and pulmonary side effects. They agreed to proceed when it is felt safe for the patient. PAST MEDICAL HISTORY: Positive for coronary artery disease, status post stent placement as well as hypertension, and GERD. PAST SURGICAL HISTORY: Cardiac cath. SOCIAL HISTORY: Lived independently up until this. No alcohol, tobacco, or illicit history. FAMILY HISTORY: Per the son, noncontributory from a GI standpoint. HOME MEDICATIONS: Listed on admission. Home medications consist of Norvasc, aspirin, Coreg, Imdur, Antivert, nitroglycerin, Prilosec, Effient, Altace, and Crestor. ALLERGIES: HE HAD ALLERGIES LISTED TO MORPHINE. REVIEW OF SYSTEMS: Unable to be obtained secondary to the patient's mental status. PERTINENT LABORATORY DATA: Sodium is 150, potassium 4.4, BUN is 15, creatinine is 2.1. White count 11.7, hemoglobin 15, hematocrit 43.0, platelet count 180. INR of 1.5. PHYSICAL EXAMINATION: VITAL SIGNS: Temperature 96.0, pulse 96, respirations 14, blood pressure 135/66. NEURO: Reveals a lethargic and essentially nonresponsive male, resting in the bed. GENERAL: He is in no acute distress. Unable to assess orientation. HEAD, EARS, EYES, NOSE, AND THROAT: His eyes are anicteric. His pupils are equal, round, and reactive to light and accommodation. Normocephalic and atraumatic. NECK: No palpable nodes. Supple. LUNGS: Coarse with a Malachi-Stoke respiratory-type pattern. CARDIOVASCULAR SYSTEM: Irregularly irregular rate and rhythm. ABDOMEN: Hypoactive with round abdomen. Soft. No distention, guarding, or rebound elicited on exam. EXTREMITIES: He has upper and lower extremity edema, 1 to 2+. SKIN: Dry and intact but with some areas of ecchymosis. ASSESSMENT: 1. Dysphagia, presently with Dobbhoff tube and the need of PEG at some point in time. 2. Cerebrovascular accidents/embolic versus vasculitis secondary to central nervous system infection. Consultation Report [address] [address] NAME: NO CRUZ : 43 STATUS : ADM IN [facility]#: [id number] AGE: 71 ADM/REG DATE : 01/31/17 MR#: [id number] REPORT SERV DATE: 02/16/17 DICTATED BY: MARIO CROFT DATE: 05/24/17 REPORT STATUS : Draft TRANSCRIBED BY: KATYA DATE: 02/16/17 3. Cryptococcal meningitis. 4. Encephalopathy. 5. History of paroxysmal atrial fibrillation. Heparin drip and Coumadin, holding at present and has received vitamin K in anticipation for lumbar puncture. 6. Questionable increased intracranial pressure. PLAN: 1. We will reevaluate daily to see the appropriate time to place PEG tube for patient to protect Dobbhoff tube, question if he continues to pull that equipment. 2. We will continue to hold Coumadin. Can resume heparin drip and it is safe to be stopped four hours prior to PEG tube placement when deemed appropriate candidate. We will follow. HOMA/KATYA Luxor MYNOR Mabry / [id number] CC: Jennifer Ham M.D.
--- NOTE | ~2017-01-30 | CN ---
Consultation Report [facility] [address] [place]. [address] NAME: GEO CRUZ : 41 STATUS : ADM IN [facility]#: [id number] AGE: 71 ADM/REG DATE : 01/31/17 MR#: [id number] REPORT SERV DATE: 02/18/17 DICTATED BY: REVA CONNELL DATE: 02/18/17 REPORT STATUS : Draft TRANSCRIBED BY: MODL DATE: 02/18/17 PALLIATIVE CARE CONSULTATION DATE OF CONSULTATION: 02/18/2017 ALLERGIES: POSSIBLE ADVERSE REACTION TO MORPHINE, TYPE NOT SPECIFIED. REASON FOR CONSULTATION: Assistance in the management and coordination of complex medical care, decision making, and the prognosis in a 71-year-old gentleman with multiple medical issues. HISTORY OF PRESENT ILLNESS: Mr. Geo Cruz is a 71-year-old [employer] who is admitted after his family brought him to the emergency room with vertigo, intractable nausea, and vomiting after several weeks of hospitalizations and events at [facility]. Approximately two weeks prior to admission, he underwent stenting of his coronary artery. Dr. Duque's consult is reviewed in that regard. He has also had some rhythm disturbances. Since discharge from [facility], he has had progressive neurological issues, dizziness, ataxia, and difficulty walking. He was actually requiring physical assistance. He was readmitted on 01/29 at [facility], but was discharged the next day with a presumptive diagnosis of dehydration. He presents to [facility] for a second opinion. On 02/05, he has an echocardiogram showing a 30% ejection fraction. On 02/04, we have a consultation from Neurology regarding his ataxia and concluding that they felt that he might have a cerebellar stroke, which in fact on scanning he did. On the , he was seen by Dr. Hernandez after a lumbar puncture. Evidently, it showed evidence of fungal meningitis. There was marked low blood sugar, increased protein, although he has had strokes in the interim and the opening pressures were not reported. He has been placed on aggressive management for this. Dr. Mathur of Nephrology has also seen the patient now because several days ago, he developed increasing creatinine levels. PAST MEDICAL HISTORY: Includes coronary artery disease, atrial fibrillation, and now progressive encephalopathy and abnormal changes in his MRI consistent with multiple neurologic injury. SOCIAL HISTORY: Remarkable for being a retired preacher. He has three sons, all of whom are involved with the family. He is a nonsmoker, nondrinker. No illicit drugs. He is the primary caregiver of his of a number of years, who unfortunately has neurological issues and neuropathy. He drives her and does a lot of the house work. Consultation Report [facility] [address] [place]. [address] NAME: GEO CRUZ : 41 STATUS : ADM IN PAT#: [id number] AGE: 71 ADM/REG DATE : 01/31/17 MR#: [id number] REPORT SERV DATE: 02/18/17 DICTATED BY: REVA CONNELL DATE: 02/18/17 REPORT STATUS : Draft TRANSCRIBED BY: MODAsiya DATE: 02/18/17 FAMILY HISTORY: Noncontributory to the chief complaint. REVIEW OF SYSTEMS: The examination of his system review unfortunately cannot be obtained secondary to the patient's cognitive status. There is, however, advance care documents indicating a desire to avoid protracted life support measures. PHYSICAL EXAMINATION: GENERAL: Examination today shows an obtunded gentleman who does not startle. VITAL SIGNS: His blood pressure is 114/54, his respiratory rate is 28-48, his pulse is 84 and appears to be a sinus rhythm, his baseline temperature is around 99. He is wearing a nasal cannula. HEENT: The head is apparently normocephalic. The pupils are 3 mm, and quite sluggish. Sclerae anicteric. Conjunctivae are pale, but pink. The nasopharynx shows evidence of inspissated secretions. NECK: Extremely stiff in all directions. Attempting to elevate his jaw to remove respiratory noises was extremely difficult. LUNGS: Show coarse breath sounds with scattered rhonchi. HEART: Regular rate and rhythm without murmur, gallop, or extra heart sounds. ABDOMEN: Bowel sounds are present. A nasogastric tube is in place. EXTREMITIES: Hypertonicity throughout, and no response to plantar stimulation. The son does tell me he is extremely ticklish. IMPRESSION/PLAN/DISCUSSION: Mr. Cruz is an unfortunate 71-year-old fellow with a profound series of neurological injuries due to or associated with an episode of cryptococcal meningitis. He is receiving comprehensive therapy for this. Unfortunately, his overall condition is fairly significantly impaired and his prognosis is certainly guarded. The initial discussion with the son, who is present at the bedside indicated that while he would not want to be on a respirator that he would not necessarily reject CPR. When I explained the cardiac resuscitation especially in the hospital, patient usually involved airway management and ventilatory support. He indicated that he felt then that the entire process should probably be eliminated and we agreed with that. Certainly continued aggressive management of his ongoing problems is indicated until we obtain some kind of neurological plateau. Unfortunately, given the events to date, I am fairly pessimistic that this gentleman is going to do particularly well, but I think until we have a much clearer picture that I think that we should certainly not limit our options. The son is comfortable with this plan and I have also discussed the case with both the nursing staff as well as Dr. Hernandez. We appreciate the opportunity to see the patient and we will follow with you. A total of 80 minutes at the bedside was consumed during the course of this review in consultation. Greater than 50% of this visit was spent in counseling and care coordination around end of life decision making and do not resuscitate orders. Consultation Report [address] [place]. [address] NAME: GEO CRUZ : 41 STATUS : ADM IN PAT#: [id number] AGE: 71 ADM/REG DATE : 01/31/17 MR#: [id number] REPORT SERV DATE: 02/18/17 DICTATED BY: REVA CONNELL DATE: 02/18/17 REPORT STATUS : Draft TRANSCRIBED BY: KATYA DATE: 02/18/17 KRISTA/KATYA Reva Connell M.D. / [id number] CC: Ernie Cole M.D.
--- NOTE | ~2017-01-30 | EEG ---
Electroencephalogram [facility] [id number] [place]. [address] NAME: NO IRWIN : 41 STATUS : ADM IN PAT#: [id number] AGE: 71 ADM/REG DATE : 01/31/17 MR#: [id number] REPORT SERV DATE: 02/04/17 DICTATED BY: ISRAEL DURAND DATE: 02/04/17 REPORT STATUS : Draft TRANSCRIBED BY: MODL DATE: 02/04/17 ELECTROENCEPHALOGRAPHY REPORT REQUESTING PHYSICIAN: Loreto Caicedo DNP, [facility]. REFERRING PHYSICIAN: Jennifer Ham M.D. INTERPRETING PHYSICIAN: Israel Durand M.D. REASON FOR EEG: Episodes of vertigo. Severe headache. Rule out seizures. AGE: 71. 23 surface electrodes, 10-20 international placement was used. The patient was noted to be awake and drowsy throughout the study. Photic stimulation was performed. Video monitoring was utilized. The background activity consisted of moderate voltage for most part, poorly organized 8 cycles per second, located in the posterior head regions. There is an asymmetry of amplitude and configuration of activity posteriorly with decrease of amplitude in the posterior head regions, left greater than right. Intermittent sharpened appearance waveforms were seen in central regions, more prominent in the right hemisphere. The patient appeared restless at times. However, no tonic-clonic seizure activity was observed. The patient's starch treating assistant showed sinus rhythm of 76 beats per minute. Intermittent PVCs were noted. Photic stimulation did not bring out additional abnormalities. No driving response was observed posteriorly. IMPRESSION: ABNORMAL EEG CHARACTERIZED BY PRESENCE OF SLOWING OF POSTERIOR ACTIVITY AND ASYMMETRY OF CEREBRAL ACTIVITY MENTIONED ABOVE. THE ABOVE CHANGES MAY BE SECONDARY TO A PHYSIOLOGICAL DISTURBANCE OF CEREBRAL ACTIVITY, THE CAUSE OF WHICH COULD NOT BE DETERMINED ON THE BASIS OF THE EEG ALONE. NEUROLOGICAL EVALUATION AND CLINICAL CORRELATION IS RECOMMENDED. LATISHA/KATYA Israel Durand MD / [id number] CC: Ernie Cole M.D.
[2017-01-30 21:51] LABS: BASOPHILS 0.1 %; BASOPHILS ABSOLUTE 0.01 10/3/uL (0.0-0.16); EOSINOPHILS 0.1 %; EOSINOPHILS ABSOLUTE 0.01 10/3/uL (0.0-0.53); ER CBC TAT 0 Hrs 03 Mins; HEMATOCRIT 43.8 % (40.0-51.0); IMMATURE GRANULOCYTES 0.6 %; IMMATURE GRANULOCYTES ABSOLUTE 0.06 10/3/uL (0.0-0.11); LYMPHOCYTES 7.2 %; LYMPHOCYTES ABSOLUTE 0.68 10/3/uL (0.67-4.30); MEAN CORPUS HGB CONC 36.5 g/dL (32.0-36.0); MEAN CORPUSCULAR VOLUME 87.6 fL (80-100); MEAN PLATELET VOLUME 9.6 fL (9.2-13.0); MONOCYTES 6.2 %; MONOCYTES ABSOLUTE 0.59 10/3/uL (0.21-1.20); NEUTROPHILS 85.8 %; PLATELET COUNT 301 10/3/uL (150-400); RBC DISTRIBUTION WIDTH 12.9 % (12.0-16.0); WHITE BLOOD CELLS 9.5 10/3/uL (4.5-10.5)
[2017-01-30 21:52] LABS: MANUAL DIFF NO %
[2017-01-30 22:08] LABS: ALBUMIN 3.8 G/DL (3.5-5.0); ALKALINE PHOSPHATASE 51 U/L (45-117); BUN (BLOOD UREA NITROGEN) 26 MG/DL (6-23); CALCIUM, SERUM 9.1 MG/DL (8.5-10.4); CHLORIDE, SERUM 98 MMOL/L (96-112); CO2 (CARBON DIOXIDE) 28 MMOL/L (24-34); CREATININE 1.34 MG/DL (0.70-1.30); GFR AFRICAN AMERICAN 60 ML/MIN (>=60); GFR NON AFRICAN AMERICAN 52 ML/MIN (>=60); GLOBULIN 3.7 G/DL (2.5-4.1); GLUCOSE, SERUM 132 MG/DL (60-99); POTASSIUM, SERUM 3.9 MMOL/L (3.5-5.3); SGOT(AST) 14 U/L (5-40); SGPT(ALT) 40 U/L (5-65); SODIUM, SERUM 132 MMOL/L (135-148); TOTAL BILIRUBIN 0.8 MG/DL (0-1.2); TOTAL PROTEIN 7.5 G/DL (6.0-8.5); TROPONIN I 0.03 NG/ML (<0.05)
[2017-01-30 22:12] LABS: INTERNATIONAL NORMAL RATI 1.1 UNITS (-); PARTIAL THROMBO TIME 24.3 SEC (22.5-37.2); PROTIME (NOT ORD) 14.1 SEC (12.0-14.5)
[2017-01-31 01:05] LABS: ASCORBIC ACID (UR NOT ORDER) NEG (NEG); BILIRUBIN, URINE NEGATIVE (NEG); ER URINALYSIS TAT 0 Hrs 00 Mins; KETONE, URINE TRACE MG/DL (NEG); LEUKOCYTE ESTERASE(NOT OR NEG (NEG); NITRITE (URINE) NEG (NEG); WBC (NOT ORDERED) (RFLEX) 4 (0-5)
[2017-01-31] MEDS ORDERED: NORV5 PO (01:18)
[2017-01-31] MEDS ORDERED: ASAB PO (01:19)
[2017-01-31] MEDS ORDERED: IMDUR60 PO (01:19)
[2017-01-31] MEDS ORDERED: PRILO PO (01:20)
[2017-01-31] MEDS ORDERED: EFFIENT10 PO (01:20)
[2017-01-31] MEDS ORDERED: NITROSTAT0.4 MG SL (01:20)
[2017-01-31] MEDS ORDERED: ALTACE10 MG PO (01:21)
[2017-01-31] MEDS ORDERED: CRESTOR20 MG PO (01:22)
[2017-01-31] MEDS ORDERED: MCZ25 PO (01:22)
[2017-01-31] MEDS ORDERED: COREG6 PO (01:23)
[2017-01-31 05:41] LABS: HEMATOCRIT 43.3 % (40.0-51.0); HEMOGLOBIN 15.7 g/dL (13.6-17.8)
[2017-01-31 12:34] LABS: HEMATOCRIT 39.9 % (40.0-51.0); HEMOGLOBIN 14.4 g/dL (13.6-17.8)
[2017-01-31 18:02] LABS: HEMATOCRIT 41.5 % (40.0-51.0); HEMOGLOBIN 14.8 g/dL (13.6-17.8)
[2017-02-01 06:39] LABS: BASOPHILS 0.2 %; BASOPHILS ABSOLUTE 0.02 10/3/uL (0.0-0.16); EOSINOPHILS 0.5 %; EOSINOPHILS ABSOLUTE 0.04 10/3/uL (0.0-0.53); HEMATOCRIT 43.5 % (40.0-51.0); HEMOGLOBIN 15.5 g/dL (13.6-17.8); IMMATURE GRANULOCYTES 0.4 %; IMMATURE GRANULOCYTES ABSOLUTE 0.03 10/3/uL (0.0-0.11); LYMPHOCYTES 13.5 %; LYMPHOCYTES ABSOLUTE 1.14 10/3/uL (0.67-4.30); MEAN CORPUS HGB CONC 35.6 g/dL (32.0-36.0); MEAN CORPUSCULAR HEMOGLOB 31.8 pg (26.0-34.0); MEAN CORPUSCULAR VOLUME 89.1 fL (80-100); MEAN PLATELET VOLUME 9.9 fL (9.2-13.0); MONOCYTES 9.9 %; MONOCYTES ABSOLUTE 0.84 10/3/uL (0.21-1.20); NEUTROPHILS 75.5 %; NEUTROPHILS ABSOLUTE 6.39 10/3/uL (2.02-8.40); PLATELET COUNT 283 10/3/uL (150-400); RBC DISTRIBUTION WIDTH 12.9 % (12.0-16.0); RED CELL COUNT 4.88 10/6/uL (4.7-6.1); WHITE BLOOD CELLS 8.5 10/3/uL (4.5-10.5)
[2017-02-01 06:40] LABS: CALCIUM, SERUM 8.8 MG/DL (8.5-10.4); CHLORIDE, SERUM 101 MMOL/L (96-112); CO2 (CARBON DIOXIDE) 24 MMOL/L (24-34); CREATININE 1.12 MG/DL (0.70-1.30); GFR AFRICAN AMERICAN 75 ML/MIN (>=60); GFR NON AFRICAN AMERICAN 65 ML/MIN (>=60); GLUCOSE, SERUM 106 MG/DL (60-99); POTASSIUM, SERUM 4.1 MMOL/L (3.5-5.3); SODIUM, SERUM 134 MMOL/L (135-148)
[2017-02-01 06:44] LABS: BUN (BLOOD UREA NITROGEN) 13 MG/DL (6-23)
[2017-02-01 06:46] LABS: MANUAL DIFF NO %
[2017-02-02 06:37] LABS: BASOPHILS 0.4 %; BASOPHILS ABSOLUTE 0.03 10/3/uL (0.0-0.16); EOSINOPHILS 1.3 %; HEMATOCRIT 42.3 % (40.0-51.0); HEMOGLOBIN 15.2 g/dL (13.6-17.8); IMMATURE GRANULOCYTES 0.5 %; IMMATURE GRANULOCYTES ABSOLUTE 0.04 10/3/uL (0.0-0.11); LYMPHOCYTES 13.3 %; LYMPHOCYTES ABSOLUTE 1.04 10/3/uL (0.67-4.30); MEAN CORPUS HGB CONC 35.9 g/dL (32.0-36.0); MEAN CORPUSCULAR HEMOGLOB 31.4 pg (26.0-34.0); MEAN CORPUSCULAR VOLUME 87.4 fL (80-100); MEAN PLATELET VOLUME 9.8 fL (9.2-13.0); MONOCYTES 16.4 %; MONOCYTES ABSOLUTE 1.28 10/3/uL (0.21-1.20); NEUTROPHILS 68.1 %; NEUTROPHILS ABSOLUTE 5.32 10/3/uL (2.02-8.40); PLATELET COUNT 259 10/3/uL (150-400); RED CELL COUNT 4.84 10/6/uL (4.7-6.1); WHITE BLOOD CELLS 7.8 10/3/uL (4.5-10.5)
[2017-02-02 06:39] LABS: MANUAL DIFF NO %
[2017-02-02 06:45] LABS: BUN (BLOOD UREA NITROGEN) 14 MG/DL (6-23); CALCIUM, SERUM 8.9 MG/DL (8.5-10.4); CHLORIDE, SERUM 101 MMOL/L (96-112); CO2 (CARBON DIOXIDE) 25 MMOL/L (24-34); CREATININE 1.01 MG/DL (0.70-1.30); GFR AFRICAN AMERICAN 85 ML/MIN (>=60); GFR NON AFRICAN AMERICAN 73 ML/MIN (>=60); GLUCOSE, SERUM 96 MG/DL (60-99); POTASSIUM, SERUM 3.9 MMOL/L (3.5-5.3); SODIUM, SERUM 133 MMOL/L (135-148)
[2017-02-03 06:51] LABS: BUN (BLOOD UREA NITROGEN) 12 MG/DL (6-23); CALCIUM, SERUM 9.1 MG/DL (8.5-10.4); CHLORIDE, SERUM 97 MMOL/L (96-112); CO2 (CARBON DIOXIDE) 25 MMOL/L (24-34); CREATININE 0.88 MG/DL (0.70-1.30); GFR AFRICAN AMERICAN 99 ML/MIN (>=60); GFR NON AFRICAN AMERICAN 85 ML/MIN (>=60); GLUCOSE, SERUM 109 MG/DL (60-99); POTASSIUM, SERUM 3.9 MMOL/L (3.5-5.3); SODIUM, SERUM 130 MMOL/L (135-148)
[2017-02-03 08:01] LABS: HEMOGLOBIN 17.1 g/dL (13.6-17.8); MEAN CORPUS HGB CONC 35.9 g/dL (32.0-36.0); MEAN CORPUSCULAR HEMOGLOB 31.4 pg (26.0-34.0); MEAN CORPUSCULAR VOLUME 87.5 fL (80-100); PLATELET COUNT 264 10/3/uL (150-400); RBC DISTRIBUTION WIDTH 13.3 % (12.0-16.0); RED CELL COUNT 5.44 10/6/uL (4.7-6.1); WHITE BLOOD CELLS 9.8 10/3/uL (4.5-10.5)
[2017-02-03 08:02] LABS: HEMATOCRIT 47.6 % (40.0-51.0); MANUAL DIFF YES %
[2017-02-03 08:32] LABS: BAND NEUTROPHILS 2 %; LYMPHOCYTES 10 %; LYMPHOCYTES ABSOLUTE (CALC) 0.98 10/3/uL (0.67-4.30); MONOCYTES 12 %; MONOCYTES ABSOLUTE (CALC) 1.18 10/3/uL (0.21-1.20); NEUTROPHILS ABSOLUTE (CALC) 7.64 10/3/uL (2.02-8.40); PLATELET ESTIMATE ADQ (ADEQUATE); RBC MORPHOLOGY NORM (NORMAL); SEGMENTED NEUTROPHIL (0) 76 %; TOTAL NUCLEATED CELLS 100
[2017-02-04 07:14] LABS: ALBUMIN 3.2 G/DL (3.5-5.0); DIRECT BILIRUBIN 0.1 MG/DL (0.0-0.4); INDIRECT BILIRUBIN(NOT ORDER) 0.9 MG/DL (0.1-0.9); TOTAL PROTEIN 6.9 G/DL (6.0-8.5)
[2017-02-04 07:15] LABS: FOLATE 18.8 NG/ML (>5.2)
[2017-02-04 08:00] LABS: PROCALCITONIN 0.08 ng/mL (<0.5)
[2017-02-06 05:30] LABS: BASOPHILS 0.1 %; BASOPHILS ABSOLUTE 0.01 10/3/uL (0.0-0.16); EOSINOPHILS 0.3 %; EOSINOPHILS ABSOLUTE 0.03 10/3/uL (0.0-0.53); HEMATOCRIT 45.2 % (40.0-51.0); HEMOGLOBIN 16.4 g/dL (13.6-17.8); IMMATURE GRANULOCYTES 0.7 %; IMMATURE GRANULOCYTES ABSOLUTE 0.06 10/3/uL (0.0-0.11); LYMPHOCYTES 10.5 %; LYMPHOCYTES ABSOLUTE 0.94 10/3/uL (0.67-4.30); MANUAL DIFF NO %; MEAN CORPUS HGB CONC 36.3 g/dL (32.0-36.0); MEAN CORPUSCULAR HEMOGLOB 31.5 pg (26.0-34.0); MEAN CORPUSCULAR VOLUME 86.9 fL (80-100); MEAN PLATELET VOLUME 9.6 fL (9.2-13.0); MONOCYTES 11.8 %; MONOCYTES ABSOLUTE 1.06 10/3/uL (0.21-1.20); NEUTROPHILS 76.6 %; NEUTROPHILS ABSOLUTE 6.89 10/3/uL (2.02-8.40); PLATELET COUNT 298 10/3/uL (150-400); RBC DISTRIBUTION WIDTH 13.1 % (12.0-16.0)
[2017-02-06 05:41] LABS: CALCIUM, SERUM 9.4 MG/DL (8.5-10.4); CHLORIDE, SERUM 101 MMOL/L (96-112); CO2 (CARBON DIOXIDE) 21 MMOL/L (24-34); CREATININE 0.93 MG/DL (0.70-1.30); GFR AFRICAN AMERICAN 94 ML/MIN (>=60); GFR NON AFRICAN AMERICAN 81 ML/MIN (>=60); GLUCOSE, SERUM 96 MG/DL (60-99); POTASSIUM, SERUM 4.1 MMOL/L (3.5-5.3); SODIUM, SERUM 130 MMOL/L (135-148)
[2017-02-06 05:49] LABS: BUN (BLOOD UREA NITROGEN) 26 MG/DL (6-23)
[2017-02-07 06:06] LABS: BASOPHILS 0.1 %; BASOPHILS ABSOLUTE 0.01 10/3/uL (0.0-0.16); EOSINOPHILS 0.3 %; EOSINOPHILS ABSOLUTE 0.04 10/3/uL (0.0-0.53); HEMATOCRIT 46.8 % (40.0-51.0); HEMOGLOBIN 17.1 g/dL (13.6-17.8); IMMATURE GRANULOCYTES 0.4 %; IMMATURE GRANULOCYTES ABSOLUTE 0.06 10/3/uL (0.0-0.11); LYMPHOCYTES 6.1 %; LYMPHOCYTES ABSOLUTE 0.86 10/3/uL (0.67-4.30); MEAN CORPUS HGB CONC 36.5 g/dL (32.0-36.0); MEAN CORPUSCULAR HEMOGLOB 32.1 pg (26.0-34.0); MEAN PLATELET VOLUME 9.6 fL (9.2-13.0); MONOCYTES 12.9 %; MONOCYTES ABSOLUTE 1.82 10/3/uL (0.21-1.20); NEUTROPHILS 80.2 %; NEUTROPHILS ABSOLUTE 11.34 10/3/uL (2.02-8.40); PLATELET COUNT 283 10/3/uL (150-400); RBC DISTRIBUTION WIDTH 13.3 % (12.0-16.0); RED CELL COUNT 5.32 10/6/uL (4.7-6.1)
[2017-02-07 06:08] LABS: MANUAL DIFF NO %; WHITE BLOOD CELLS 14.1 10/3/uL (4.5-10.5)
[2017-02-07 06:21] LABS: BUN (BLOOD UREA NITROGEN) 28 MG/DL (6-23); CALCIUM, SERUM 9.8 MG/DL (8.5-10.4); CHLORIDE, SERUM 99 MMOL/L (96-112); CO2 (CARBON DIOXIDE) 24 MMOL/L (24-34); CREATININE 1.02 MG/DL (0.70-1.30); GFR AFRICAN AMERICAN 84 ML/MIN (>=60); GFR NON AFRICAN AMERICAN 73 ML/MIN (>=60); GLUCOSE, SERUM 106 MG/DL (60-99); POTASSIUM, SERUM 3.8 MMOL/L (3.5-5.3); SODIUM, SERUM 133 MMOL/L (135-148)
[2017-02-07 18:36] LABS: WBC (NOT ORDERED) (RFLEX) 0 (0-5)
[2017-02-07 19:25] LABS: ASCORBIC ACID (UR NOT ORDER) NEG (NEG); BILIRUBIN, URINE NEGATIVE (NEG); KETONE, URINE 20 MG/DL (NEG); LEUKOCYTE ESTERASE(NOT OR NEG (NEG)
[2017-02-08 06:13] LABS: BASOPHILS 0.1 %; BASOPHILS ABSOLUTE 0.01 10/3/uL (0.0-0.16); EOSINOPHILS 0.4 %; EOSINOPHILS ABSOLUTE 0.05 10/3/uL (0.0-0.53); HEMATOCRIT 45.4 % (40.0-51.0); HEMOGLOBIN 16.6 g/dL (13.6-17.8); IMMATURE GRANULOCYTES 0.7 %; IMMATURE GRANULOCYTES ABSOLUTE 0.09 10/3/uL (0.0-0.11); LYMPHOCYTES 6.4 %; LYMPHOCYTES ABSOLUTE 0.86 10/3/uL (0.67-4.30); MEAN CORPUS HGB CONC 36.6 g/dL (32.0-36.0); MEAN CORPUSCULAR VOLUME 87.6 fL (80-100); MEAN PLATELET VOLUME 9.9 fL (9.2-13.0); MONOCYTES 10.1 %; MONOCYTES ABSOLUTE 1.35 10/3/uL (0.21-1.20); NEUTROPHILS 82.3 %; NEUTROPHILS ABSOLUTE 11.01 10/3/uL (2.02-8.40); PLATELET COUNT 264 10/3/uL (150-400); RBC DISTRIBUTION WIDTH 12.9 % (12.0-16.0); RED CELL COUNT 5.18 10/6/uL (4.7-6.1); WHITE BLOOD CELLS 13.4 10/3/uL (4.5-10.5)
[2017-02-08 06:16] LABS: MANUAL DIFF NO %
[2017-02-08 06:24] LABS: BUN (BLOOD UREA NITROGEN) 30 MG/DL (6-23); CALCIUM, SERUM 9.3 MG/DL (8.5-10.4); CHLORIDE, SERUM 101 MMOL/L (96-112); CO2 (CARBON DIOXIDE) 25 MMOL/L (24-34); CREATININE 0.98 MG/DL (0.70-1.30); GFR AFRICAN AMERICAN 88 ML/MIN (>=60); GFR NON AFRICAN AMERICAN 76 ML/MIN (>=60); POTASSIUM, SERUM 3.7 MMOL/L (3.5-5.3); SODIUM, SERUM 134 MMOL/L (135-148)
[2017-02-08 06:26] LABS: GLUCOSE, SERUM 136 MG/DL (60-99)
[2017-02-08 11:07] LABS: INTERNATIONAL NORMAL RATI 1.1 UNITS (-); PROTIME (NOT ORD) 14.4 SEC (12.0-14.5)
[2017-02-09 05:43] LABS: BASOPHILS 0.1 %; BASOPHILS ABSOLUTE 0.01 10/3/uL (0.0-0.16); EOSINOPHILS 0.1 %; EOSINOPHILS ABSOLUTE 0.01 10/3/uL (0.0-0.53); HEMATOCRIT 46.3 % (40.0-51.0); HEMOGLOBIN 16.7 g/dL (13.6-17.8); IMMATURE GRANULOCYTES 0.9 %; IMMATURE GRANULOCYTES ABSOLUTE 0.11 10/3/uL (0.0-0.11); LYMPHOCYTES 6.6 %; LYMPHOCYTES ABSOLUTE 0.83 10/3/uL (0.67-4.30); MEAN CORPUS HGB CONC 36.1 g/dL (32.0-36.0); MEAN CORPUSCULAR HEMOGLOB 31.6 pg (26.0-34.0); MEAN CORPUSCULAR VOLUME 87.7 fL (80-100); MEAN PLATELET VOLUME 9.7 fL (9.2-13.0); MONOCYTES 8.9 %; MONOCYTES ABSOLUTE 1.12 10/3/uL (0.21-1.20); NEUTROPHILS 83.4 %; NEUTROPHILS ABSOLUTE 10.46 10/3/uL (2.02-8.40); PLATELET COUNT 260 10/3/uL (150-400); RBC DISTRIBUTION WIDTH 12.8 % (12.0-16.0); RED CELL COUNT 5.28 10/6/uL (4.7-6.1); WHITE BLOOD CELLS 12.5 10/3/uL (4.5-10.5)
[2017-02-09 05:44] LABS: MANUAL DIFF NO %
[2017-02-09 05:52] LABS: INTERNATIONAL NORMAL RATI 1.1 UNITS (-); PROTIME (NOT ORD) 13.7 SEC (12.0-14.5)
[2017-02-09 05:58] LABS: CALCIUM, SERUM 9.2 MG/DL (8.5-10.4); CHLORIDE, SERUM 103 MMOL/L (96-112); CREATININE 0.81 MG/DL (0.70-1.30); GFR AFRICAN AMERICAN 102 ML/MIN (>=60); GFR NON AFRICAN AMERICAN 88 ML/MIN (>=60); GLUCOSE, SERUM 136 MG/DL (60-99); SODIUM, SERUM 134 MMOL/L (135-148)
[2017-02-09 06:02] LABS: BUN (BLOOD UREA NITROGEN) 17 MG/DL (6-23); CO2 (CARBON DIOXIDE) 20 MMOL/L (24-34); POTASSIUM, SERUM 4.2 MMOL/L (3.5-5.3)
[2017-02-09 06:15] LABS: PLATELET ESTIMATE ADQ (ADEQUATE)
[2017-02-09 06:18] LABS: RBC MORPHOLOGY NORM (NORMAL); TOXIC GRANULATION 1+; VACUOLATED NEUTROPHILES OCC
[2017-02-10 06:56] LABS: INTERNATIONAL NORMAL RATI 1.2 UNITS (-); PROTIME (NOT ORD) 14.9 SEC (12.0-14.5)
[2017-02-10 06:57] LABS: BASOPHILS 0.1 %; BASOPHILS ABSOLUTE 0.01 10/3/uL (0.0-0.16); EOSINOPHILS 0.2 %; EOSINOPHILS ABSOLUTE 0.03 10/3/uL (0.0-0.53); HEMATOCRIT 45.9 % (40.0-51.0); HEMOGLOBIN 16.6 g/dL (13.6-17.8); IMMATURE GRANULOCYTES 0.8 %; IMMATURE GRANULOCYTES ABSOLUTE 0.12 10/3/uL (0.0-0.11); LYMPHOCYTES 5.4 %; MEAN CORPUS HGB CONC 36.2 g/dL (32.0-36.0); MEAN CORPUSCULAR HEMOGLOB 31.6 pg (26.0-34.0); MEAN CORPUSCULAR VOLUME 87.4 fL (80-100); MEAN PLATELET VOLUME 9.6 fL (9.2-13.0); MONOCYTES 11.8 %; MONOCYTES ABSOLUTE 1.74 10/3/uL (0.21-1.20); NEUTROPHILS 81.7 %; NEUTROPHILS ABSOLUTE 12.09 10/3/uL (2.02-8.40); PLATELET COUNT 280 10/3/uL (150-400); RBC DISTRIBUTION WIDTH 13.3 % (12.0-16.0); RED CELL COUNT 5.25 10/6/uL (4.7-6.1); WHITE BLOOD CELLS 14.8 10/3/uL (4.5-10.5)
[2017-02-10 07:04] LABS: MANUAL DIFF NO %
[2017-02-10 07:13] LABS: A/G RATIO 0.9 (0.7-1.9); ALBUMIN 3.3 G/DL (3.5-5.0); ALKALINE PHOSPHATASE 55 U/L (45-117); BUN (BLOOD UREA NITROGEN) 11 MG/DL (6-23); CALCIUM, SERUM 9.2 MG/DL (8.5-10.4); CHLORIDE, SERUM 100 MMOL/L (96-112); CO2 (CARBON DIOXIDE) 30 MMOL/L (24-34); CREATININE 0.82 MG/DL (0.70-1.30); GFR AFRICAN AMERICAN 102 ML/MIN (>=60); GFR NON AFRICAN AMERICAN 88 ML/MIN (>=60); GLOBULIN 3.6 G/DL (2.5-4.1); GLUCOSE, SERUM 150 MG/DL (60-99); POTASSIUM, SERUM 3.5 MMOL/L (3.5-5.3); SGOT(AST) 17 U/L (5-40); SGPT(ALT) 46 U/L (5-65); SODIUM, SERUM 135 MMOL/L (135-148); TOTAL BILIRUBIN 0.9 MG/DL (0-1.2); TOTAL PROTEIN 6.9 G/DL (6.0-8.5)
[2017-02-10 12:02] LABS: INTERNATIONAL NORMAL RATI 1.3 UNITS (-); PARTIAL THROMBO TIME 29.5 SEC (22.5-37.2); PROTIME (NOT ORD) 15.7 SEC (12.0-14.5)
[2017-02-10 12:10] LABS: BASOPHILS 0.1 %; BASOPHILS ABSOLUTE 0.02 10/3/uL (0.0-0.16); EOSINOPHILS 0.4 %; EOSINOPHILS ABSOLUTE 0.05 10/3/uL (0.0-0.53); IMMATURE GRANULOCYTES 0.9 %; IMMATURE GRANULOCYTES ABSOLUTE 0.12 10/3/uL (0.0-0.11); LYMPHOCYTES 5.3 %; LYMPHOCYTES ABSOLUTE 0.73 10/3/uL (0.67-4.30); MEAN CORPUS HGB CONC 37.9 g/dL (32.0-36.0); MEAN CORPUSCULAR HEMOGLOB 32.6 pg (26.0-34.0); MEAN CORPUSCULAR VOLUME 86.1 fL (80-100); MEAN PLATELET VOLUME 9.8 fL (9.2-13.0); MONOCYTES 11.8 %; MONOCYTES ABSOLUTE 1.63 10/3/uL (0.21-1.20); NEUTROPHILS 81.5 %; PLATELET COUNT 254 10/3/uL (150-400); RBC DISTRIBUTION WIDTH 13.3 % (12.0-16.0); RED CELL COUNT 5.18 10/6/uL (4.7-6.1); WHITE BLOOD CELLS 13.9 10/3/uL (4.5-10.5)
[2017-02-10 12:11] LABS: HEMATOCRIT 45.8 % (40.0-51.0); HEMOGLOBIN 15.4 g/dL (13.6-17.8); MANUAL DIFF NO %
[2017-02-10 12:17] LABS: FREE T4 1.25 NG/DL (0.76-1.46); TROPONIN I 0.05 NG/ML (<0.05)
[2017-02-10 12:19] LABS: ULTRASENSITIVE TSH 1.9 MCIU/ML (0.358-3.740)
[2017-02-11 07:35] LABS: BASOPHILS 0.1 %; BASOPHILS ABSOLUTE 0.01 10/3/uL (0.0-0.16); EOSINOPHILS 0.3 %; EOSINOPHILS ABSOLUTE 0.04 10/3/uL (0.0-0.53); HEMATOCRIT 45.1 % (40.0-51.0); HEMOGLOBIN 16.3 g/dL (13.6-17.8); IMMATURE GRANULOCYTES 1.2 %; IMMATURE GRANULOCYTES ABSOLUTE 0.17 10/3/uL (0.0-0.11); LYMPHOCYTES 7.8 %; LYMPHOCYTES ABSOLUTE 1.11 10/3/uL (0.67-4.30); MEAN CORPUS HGB CONC 36.1 g/dL (32.0-36.0); MEAN CORPUSCULAR HEMOGLOB 31.9 pg (26.0-34.0); MEAN CORPUSCULAR VOLUME 88.3 fL (80-100); MEAN PLATELET VOLUME 9.5 fL (9.2-13.0); MONOCYTES 11.1 %; MONOCYTES ABSOLUTE 1.58 10/3/uL (0.21-1.20); NEUTROPHILS 79.5 %; NEUTROPHILS ABSOLUTE 11.32 10/3/uL (2.02-8.40); PLATELET COUNT 271 10/3/uL (150-400); RBC DISTRIBUTION WIDTH 13.5 % (12.0-16.0); RED CELL COUNT 5.11 10/6/uL (4.7-6.1); WHITE BLOOD CELLS 14.2 10/3/uL (4.5-10.5)
[2017-02-11 07:36] LABS: MANUAL DIFF NO %
[2017-02-11 07:42] LABS: INTERNATIONAL NORMAL RATI 1.5 UNITS (-); PROTIME (NOT ORD) 17.5 SEC (12.0-14.5)
[2017-02-11 07:43] LABS: PARTIAL THROMBO TIME 99.8 SEC (22.5-37.2)
[2017-02-11 07:56] LABS: BUN (BLOOD UREA NITROGEN) 13 MG/DL (6-23); CALCIUM, SERUM 9.2 MG/DL (8.5-10.4); CHLORIDE, SERUM 103 MMOL/L (96-112); CO2 (CARBON DIOXIDE) 30 MMOL/L (24-34); CREATININE 0.86 MG/DL (0.70-1.30); GFR AFRICAN AMERICAN 100 ML/MIN (>=60); GFR NON AFRICAN AMERICAN 86 ML/MIN (>=60); GLUCOSE, SERUM 125 MG/DL (60-99); POTASSIUM, SERUM 3.5 MMOL/L (3.5-5.3); SODIUM, SERUM 138 MMOL/L (135-148); TROPONIN I 0.07 NG/ML (<0.05)
[2017-02-11 09:06] LABS: PROCALCITONIN <0.05 ng/mL (<0.5)
[2017-02-11 15:39] LABS: TOTAL PROTEIN, CSF 197.3 MG/DL (15-45)
[2017-02-11 15:56] LABS: CSF BASO 0 % (NO REF RANGE); CSF EOS 0 % (0-1); CSF LYMPH (NOT ORD) 37 % (28-96); CSF MONO 59 % (16-56); CSF SEGS (NOT ORD) 4 % (0-7)
[2017-02-11 15:57] LABS: CSF RBC (NOT ORD) 1000 MM3 (NO REFERENCE); CSF WBC (NOT ORD) 70 /uL (0-10)
[2017-02-11 16:00] LABS: CSF APPEARANCE (NOT ORD) CLEAR (CLEAR); CSF COLOR (NOT ORD) XANTHOCHROMIC (COLORLESS); CSF XANTHROCHROMIA POS (NEG)
[2017-02-12 07:48] LABS: BASOPHILS 0.2 %; BASOPHILS ABSOLUTE 0.02 10/3/uL (0.0-0.16); EOSINOPHILS 0.5 %; EOSINOPHILS ABSOLUTE 0.06 10/3/uL (0.0-0.53); HEMATOCRIT 47.8 % (40.0-51.0); HEMOGLOBIN 16.7 g/dL (13.6-17.8); IMMATURE GRANULOCYTES 1.4 %; IMMATURE GRANULOCYTES ABSOLUTE 0.18 10/3/uL (0.0-0.11); LYMPHOCYTES 5.4 %; LYMPHOCYTES ABSOLUTE 0.68 10/3/uL (0.67-4.30); MEAN CORPUS HGB CONC 34.9 g/dL (32.0-36.0); MEAN CORPUSCULAR HEMOGLOB 32.1 pg (26.0-34.0); MEAN PLATELET VOLUME 9.7 fL (9.2-13.0); MONOCYTES 11.7 %; MONOCYTES ABSOLUTE 1.48 10/3/uL (0.21-1.20); NEUTROPHILS 80.8 %; PLATELET COUNT 243 10/3/uL (150-400); RBC DISTRIBUTION WIDTH 13.4 % (12.0-16.0); RED CELL COUNT 5.21 10/6/uL (4.7-6.1); WHITE BLOOD CELLS 12.6 10/3/uL (4.5-10.5)
[2017-02-12 07:51] LABS: MANUAL DIFF NO %; MEAN CORPUSCULAR VOLUME 91.7 fL (80-100)
[2017-02-12 07:52] LABS: INTERNATIONAL NORMAL RATI 1.2 UNITS (-); PROTIME (NOT ORD) 15.3 SEC (12.0-14.5)
[2017-02-12 08:01] LABS: BUN (BLOOD UREA NITROGEN) 14 MG/DL (6-23); CALCIUM, SERUM 9.9 MG/DL (8.5-10.4); CHLORIDE, SERUM 106 MMOL/L (96-112); CO2 (CARBON DIOXIDE) 28 MMOL/L (24-34); CREATININE 1.08 MG/DL (0.70-1.30); GFR AFRICAN AMERICAN 78 ML/MIN (>=60); GFR NON AFRICAN AMERICAN 68 ML/MIN (>=60); SODIUM, SERUM 144 MMOL/L (135-148)
[2017-02-12 08:02] LABS: GLUCOSE, SERUM 153 MG/DL (60-99); POTASSIUM, SERUM 4.6 MMOL/L (3.5-5.3)
[2017-02-13 06:11] LABS: BASOPHILS 0.2 %; BASOPHILS ABSOLUTE 0.02 10/3/uL (0.0-0.16); EOSINOPHILS 0.1 %; EOSINOPHILS ABSOLUTE 0.01 10/3/uL (0.0-0.53); HEMATOCRIT 44.5 % (40.0-51.0); HEMOGLOBIN 16.1 g/dL (13.6-17.8); IMMATURE GRANULOCYTES 2.2 %; IMMATURE GRANULOCYTES ABSOLUTE 0.27 10/3/uL (0.0-0.11); LYMPHOCYTES 5.7 %; LYMPHOCYTES ABSOLUTE 0.71 10/3/uL (0.67-4.30); MANUAL DIFF NO %; MEAN CORPUS HGB CONC 36.2 g/dL (32.0-36.0); MEAN CORPUSCULAR HEMOGLOB 31.8 pg (26.0-34.0); MEAN CORPUSCULAR VOLUME 87.8 fL (80-100); MEAN PLATELET VOLUME 9.8 fL (9.2-13.0); MONOCYTES 12.9 %; MONOCYTES ABSOLUTE 1.59 10/3/uL (0.21-1.20); NEUTROPHILS 78.9 %; NEUTROPHILS ABSOLUTE 9.75 10/3/uL (2.02-8.40); PLATELET COUNT 216 10/3/uL (150-400); RBC DISTRIBUTION WIDTH 13.5 % (12.0-16.0); RED CELL COUNT 5.07 10/6/uL (4.7-6.1); WHITE BLOOD CELLS 12.4 10/3/uL (4.5-10.5)
[2017-02-13 06:14] LABS: PROTIME (NOT ORD) 22.2 SEC (12.0-14.5)
[2017-02-13 06:18] LABS: BUN (BLOOD UREA NITROGEN) 15 MG/DL (6-23); CALCIUM, SERUM 9.7 MG/DL (8.5-10.4); CHLORIDE, SERUM 107 MMOL/L (96-112); CO2 (CARBON DIOXIDE) 26 MMOL/L (24-34); GFR AFRICAN AMERICAN 98 ML/MIN (>=60); GFR NON AFRICAN AMERICAN 84 ML/MIN (>=60); GLUCOSE, SERUM 158 MG/DL (60-99); SODIUM, SERUM 143 MMOL/L (135-148)
[2017-02-13 06:19] LABS: POTASSIUM, SERUM 3.1 MMOL/L (3.5-5.3)
[2017-02-14 00:48] LABS: BASOPHILS 0.2 %; BASOPHILS ABSOLUTE 0.03 10/3/uL (0.0-0.16); EOSINOPHILS 0.1 %; EOSINOPHILS ABSOLUTE 0.02 10/3/uL (0.0-0.53); HEMATOCRIT 46.1 % (40.0-51.0); HEMOGLOBIN 16.7 g/dL (13.6-17.8); IMMATURE GRANULOCYTES 1.2 %; IMMATURE GRANULOCYTES ABSOLUTE 0.23 10/3/uL (0.0-0.11); LYMPHOCYTES 5.9 %; LYMPHOCYTES ABSOLUTE 1.13 10/3/uL (0.67-4.30); MEAN CORPUS HGB CONC 36.2 g/dL (32.0-36.0); MEAN CORPUSCULAR HEMOGLOB 32.1 pg (26.0-34.0); MEAN CORPUSCULAR VOLUME 88.7 fL (80-100); MEAN PLATELET VOLUME 9.6 fL (9.2-13.0); MONOCYTES 18.2 %; MONOCYTES ABSOLUTE 3.48 10/3/uL (0.21-1.20); NEUTROPHILS 74.4 %; NEUTROPHILS ABSOLUTE 14.28 10/3/uL (2.02-8.40); PLATELET COUNT 260 10/3/uL (150-400); RBC DISTRIBUTION WIDTH 13.3 % (12.0-16.0)
[2017-02-14 00:49] LABS: MANUAL DIFF NO %; WHITE BLOOD CELLS 19.2 10/3/uL (4.5-10.5)
[2017-02-14 00:57] LABS: INTERNATIONAL NORMAL RATI 2.3 UNITS (-)
[2017-02-14 01:00] LABS: BUN (BLOOD UREA NITROGEN) 29 MG/DL (6-23); CALCIUM, SERUM 9.9 MG/DL (8.5-10.4); CHLORIDE, SERUM 109 MMOL/L (96-112); CO2 (CARBON DIOXIDE) 27 MMOL/L (24-34); CREATININE 1.47 MG/DL (0.70-1.30); GFR AFRICAN AMERICAN 54 ML/MIN (>=60); GFR NON AFRICAN AMERICAN 47 ML/MIN (>=60); GLUCOSE, SERUM 168 MG/DL (60-99); POTASSIUM, SERUM 3.5 MMOL/L (3.5-5.3); SODIUM, SERUM 143 MMOL/L (135-148)
[2017-02-15 03:14] LABS: BASOPHILS 0.1 %; BASOPHILS ABSOLUTE 0.01 10/3/uL (0.0-0.16); EOSINOPHILS 0 %; HEMATOCRIT 42.7 % (40.0-51.0); HEMOGLOBIN 15.2 g/dL (13.6-17.8); IMMATURE GRANULOCYTES 1.4 %; IMMATURE GRANULOCYTES ABSOLUTE 0.19 10/3/uL (0.0-0.11); LYMPHOCYTES 9.6 %; LYMPHOCYTES ABSOLUTE 1.31 10/3/uL (0.67-4.30); MEAN CORPUS HGB CONC 35.6 g/dL (32.0-36.0); MEAN CORPUSCULAR HEMOGLOB 31.5 pg (26.0-34.0); MEAN CORPUSCULAR VOLUME 88.4 fL (80-100); MEAN PLATELET VOLUME 9.9 fL (9.2-13.0); MONOCYTES 11.6 %; MONOCYTES ABSOLUTE 1.58 10/3/uL (0.21-1.20); NEUTROPHILS 77.3 %; PLATELET COUNT 222 10/3/uL (150-400); RBC DISTRIBUTION WIDTH 13.7 % (12.0-16.0); RED CELL COUNT 4.83 10/6/uL (4.7-6.1); WHITE BLOOD CELLS 13.6 10/3/uL (4.5-10.5)
[2017-02-15 03:15] LABS: MANUAL DIFF NO %
[2017-02-15 03:22] LABS: INTERNATIONAL NORMAL RATI 2.4 UNITS (-); PROTIME (NOT ORD) 25.5 SEC (12.0-14.5)
[2017-02-15 03:33] LABS: A/G RATIO 0.8 (0.7-1.9); ALBUMIN 2.7 G/DL (3.5-5.0); ALKALINE PHOSPHATASE 61 U/L (45-117); BUN (BLOOD UREA NITROGEN) 40 MG/DL (6-23); CALCIUM, SERUM 9.6 MG/DL (8.5-10.4); CHLORIDE, SERUM 113 MMOL/L (96-112); CO2 (CARBON DIOXIDE) 23 MMOL/L (24-34); CREATININE 1.85 MG/DL (0.70-1.30); GFR AFRICAN AMERICAN 41 ML/MIN (>=60); GFR NON AFRICAN AMERICAN 35 ML/MIN (>=60); GLOBULIN 3.4 G/DL (2.5-4.1); GLUCOSE, SERUM 168 MG/DL (60-99); POTASSIUM, SERUM 3.9 MMOL/L (3.5-5.3); SGOT(AST) 32 U/L (5-40); SGPT(ALT) 82 U/L (5-65); SODIUM, SERUM 146 MMOL/L (135-148); TOTAL BILIRUBIN 0.5 MG/DL (0-1.2); TOTAL PROTEIN 6.1 G/DL (6.0-8.5)
[2017-02-15 12:33] LABS: ASCORBIC ACID (UR NOT ORDER) NEGATIVE (NEG); BILIRUBIN, URINE NEGATIVE (NEG); KETONE, URINE NEGATIVE (NEG); LEUKOCYTE ESTERASE(NOT OR SMALL (NEG)
[2017-02-15 12:34] LABS: WBC (NOT ORDERED) (RFLEX) 40 (0-5)
[2017-02-15 14:00] LABS: ALLENS TEST Pos; BE (BASE EXCESS) -2.7 MEQ/L (0 +/- 2.5); CARBOXYHEMOGLOBIN 0.6 % (0-3); HCO3 (ACTUAL BICARBONATE) 20.2 MEQ/L (23-27); HEMOBLOGIN CONTENT 15.2 G/DL (14-18); INSTRUMENT SERIAL # 8083; METHEMOGLOBIN 0.4 % (0-3); O2 CONTENT 20.4 VOL% (18-24); OPERATOR ID 32199; PCO2 (CO2 TENSION) 31 MMHG (35-45); PO2 (O2 TENSION) 83 MMHG (79-93); SAMPLE Arterial; pH 7.44 (7.37-7.43)
[2017-02-15 18:21] LABS: INTERNATIONAL NORMAL RATI 1.7 UNITS (-)
[2017-02-15 18:22] LABS: PROTIME (NOT ORD) 19.8 SEC (12.0-14.5)
[2017-02-16 05:09] LABS: BASOPHILS 0.1 %; BASOPHILS ABSOLUTE 0.01 10/3/uL (0.0-0.16); EOSINOPHILS 0.1 %; EOSINOPHILS ABSOLUTE 0.01 10/3/uL (0.0-0.53); IMMATURE GRANULOCYTES 1.6 %; IMMATURE GRANULOCYTES ABSOLUTE 0.19 10/3/uL (0.0-0.11); LYMPHOCYTES 8.4 %; LYMPHOCYTES ABSOLUTE 0.98 10/3/uL (0.67-4.30); MEAN CORPUS HGB CONC 34.9 g/dL (32.0-36.0); MEAN CORPUSCULAR HEMOGLOB 31.4 pg (26.0-34.0); MEAN CORPUSCULAR VOLUME 90.1 fL (80-100); MEAN PLATELET VOLUME 10.3 fL (9.2-13.0); MONOCYTES 12.6 %; MONOCYTES ABSOLUTE 1.47 10/3/uL (0.21-1.20); NEUTROPHILS 77.2 %; NEUTROPHILS ABSOLUTE 9.04 10/3/uL (2.02-8.40); PLATELET COUNT 180 10/3/uL (150-400); RBC DISTRIBUTION WIDTH 13.7 % (12.0-16.0); RED CELL COUNT 4.77 10/6/uL (4.7-6.1); WHITE BLOOD CELLS 11.7 10/3/uL (4.5-10.5)
[2017-02-16 05:10] LABS: MANUAL DIFF NO %
[2017-02-16 05:16] LABS: INTERNATIONAL NORMAL RATI 1.5 UNITS (-); PROTIME (NOT ORD) 17.5 SEC (12.0-14.5)
[2017-02-16 05:31] LABS: A/G RATIO 0.8 (0.7-1.9); ALBUMIN 2.7 G/DL (3.5-5.0); ALKALINE PHOSPHATASE 52 U/L (45-117); BUN (BLOOD UREA NITROGEN) 50 MG/DL (6-23); CALCIUM, SERUM 9.7 MG/DL (8.5-10.4); CHLORIDE, SERUM 120 MMOL/L (96-112); CO2 (CARBON DIOXIDE) 22 MMOL/L (24-34); CREATININE 2.11 MG/DL (0.70-1.30); GFR AFRICAN AMERICAN 35 ML/MIN (>=60); GFR NON AFRICAN AMERICAN 30 ML/MIN (>=60); GLOBULIN 3.3 G/DL (2.5-4.1); GLUCOSE, SERUM 117 MG/DL (60-99); POTASSIUM, SERUM 4.4 MMOL/L (3.5-5.3); SGOT(AST) 28 U/L (5-40); SGPT(ALT) 68 U/L (5-65); SODIUM, SERUM 150 MMOL/L (135-148); TOTAL BILIRUBIN 0.6 MG/DL (0-1.2)
[2017-02-16 14:46] LABS: TOTAL PROTEIN, CSF 228.4 MG/DL (15-45)
[2017-02-16 14:47] LABS: GLUCOSE CSF < 1 MG/DL (45-70)
[2017-02-16 14:59] LABS: CSF APPEARANCE (NOT ORD) CLEAR (CLEAR); CSF COLOR (NOT ORD) COLORLESS (COLORLESS)
[2017-02-16 15:02] LABS: CSF XANTHROCHROMIA NEG (NEG)
[2017-02-16 16:12] LABS: M.TB COMP PCR NON RESP NOT DETECTED (NOTDET)
[2017-02-16 16:20] LABS: CSF BASO 0 % (NO REF RANGE); CSF EOS 0 % (0-1); CSF LYMPH (NOT ORD) 57 % (28-96); CSF MONO 42 % (16-56); CSF RBC (NOT ORD) 623 MM3 (NO REFERENCE); CSF SEGS (NOT ORD) 1 % (0-7); CSF WBC (NOT ORD) 114 /uL (0-10)
[2017-02-16 19:12] LABS: A/G RATIO 0.8 (0.7-1.9); ALBUMIN 2.7 G/DL (3.5-5.0); ALKALINE PHOSPHATASE 54 U/L (45-117); CALCIUM, SERUM 9.5 MG/DL (8.5-10.4); CHLORIDE, SERUM 124 MMOL/L (96-112); CO2 (CARBON DIOXIDE) 22 MMOL/L (24-34); CREATININE 2.01 MG/DL (0.70-1.30); GFR AFRICAN AMERICAN 37 ML/MIN (>=60); GFR NON AFRICAN AMERICAN 32 ML/MIN (>=60); GLOBULIN 3.2 G/DL (2.5-4.1); GLUCOSE, SERUM 100 MG/DL (60-99); PHOSPHORUS, SERUM 4.7 MG/DL (2.5-4.5); POTASSIUM, SERUM 4.1 MMOL/L (3.5-5.3); PREALBUMIN 19.8 MG/DL (17.0-43.0); SGOT(AST) 38 U/L (5-40); SGPT(ALT) 69 U/L (5-65); SODIUM, SERUM 154 MMOL/L (135-148); TOTAL BILIRUBIN 0.6 MG/DL (0-1.2); TOTAL PROTEIN 5.9 G/DL (6.0-8.5)
[2017-02-16 19:13] LABS: BUN (BLOOD UREA NITROGEN) 55 MG/DL (6-23)
[2017-02-16 20:07] LABS: CREATININE, URINE 40.3 MG/DL
[2017-02-16 22:16] LABS: ALLENS TEST Pos; BE (BASE EXCESS) -2.9 MEQ/L (0 +/- 2.5); CARBOXYHEMOGLOBIN 0.8 % (0-3); HCO3 (ACTUAL BICARBONATE) 20.9 MEQ/L (23-27); HEMOBLOGIN CONTENT 14.4 G/DL (14-18); INSTRUMENT SERIAL # 8083; METHEMOGLOBIN 0.3 % (0-3); O2 CONTENT 19.6 VOL% (18-24); OPERATOR ID 23712; PCO2 (CO2 TENSION) 34 MMHG (35-45); PO2 (O2 TENSION) 102 MMHG (79-93); SAMPLE Arterial; pH 7.41 (7.37-7.43)
[2017-02-17 05:58] LABS: BASOPHILS 0.1 %; BASOPHILS ABSOLUTE 0.02 10/3/uL (0.0-0.16); EOSINOPHILS 0.1 %; EOSINOPHILS ABSOLUTE 0.01 10/3/uL (0.0-0.53); HEMATOCRIT 42.7 % (40.0-51.0); IMMATURE GRANULOCYTES ABSOLUTE 0.16 10/3/uL (0.0-0.11); LYMPHOCYTES 6.4 %; LYMPHOCYTES ABSOLUTE 0.97 10/3/uL (0.67-4.30); MEAN CORPUS HGB CONC 35.1 g/dL (32.0-36.0); MEAN CORPUSCULAR HEMOGLOB 31.7 pg (26.0-34.0); MEAN CORPUSCULAR VOLUME 90.3 fL (80-100); MONOCYTES 9.8 %; MONOCYTES ABSOLUTE 1.49 10/3/uL (0.21-1.20); NEUTROPHILS 82.6 %; NEUTROPHILS ABSOLUTE 12.59 10/3/uL (2.02-8.40); PLATELET COUNT 148 10/3/uL (150-400); RBC DISTRIBUTION WIDTH 13.9 % (12.0-16.0); RED CELL COUNT 4.73 10/6/uL (4.7-6.1); WHITE BLOOD CELLS 15.2 10/3/uL (4.5-10.5)
[2017-02-17 06:02] LABS: MANUAL DIFF NO %
[2017-02-17 06:09] LABS: A/G RATIO 0.8 (0.7-1.9); ALBUMIN 2.7 G/DL (3.5-5.0); ALKALINE PHOSPHATASE 52 U/L (45-117); BUN (BLOOD UREA NITROGEN) 52 MG/DL (6-23); CALCIUM, SERUM 9.7 MG/DL (8.5-10.4); CHLORIDE, SERUM 120 MMOL/L (96-112); CO2 (CARBON DIOXIDE) 27 MMOL/L (24-34); CREATININE 1.96 MG/DL (0.70-1.30); GFR AFRICAN AMERICAN 38 ML/MIN (>=60); GFR NON AFRICAN AMERICAN 33 ML/MIN (>=60); GLOBULIN 3.2 G/DL (2.5-4.1); GLUCOSE, SERUM 125 MG/DL (60-99); PHOSPHORUS, SERUM 4.3 MG/DL (2.5-4.5); POTASSIUM, SERUM 3.8 MMOL/L (3.5-5.3); SGOT(AST) 31 U/L (5-40); SGPT(ALT) 60 U/L (5-65); SODIUM, SERUM 154 MMOL/L (135-148); TOTAL BILIRUBIN 1.1 MG/DL (0-1.2); TOTAL PROTEIN 5.9 G/DL (6.0-8.5)
[2017-02-17 06:20] LABS: INTERNATIONAL NORMAL RATI 1.3 UNITS (-); PROTIME (NOT ORD) 15.6 SEC (12.0-14.5)
[2017-02-17 20:58] LABS: BASOPHILS 0.1 %; BASOPHILS ABSOLUTE 0.02 10/3/uL (0.0-0.16); EOSINOPHILS 0.1 %; EOSINOPHILS ABSOLUTE 0.01 10/3/uL (0.0-0.53); HEMATOCRIT 44.1 % (40.0-51.0); HEMOGLOBIN 15.5 g/dL (13.6-17.8); IMMATURE GRANULOCYTES 0.5 %; LYMPHOCYTES 3.1 %; MEAN CORPUS HGB CONC 35.1 g/dL (32.0-36.0); MEAN CORPUSCULAR HEMOGLOB 31.8 pg (26.0-34.0); MEAN CORPUSCULAR VOLUME 90.6 fL (80-100); MEAN PLATELET VOLUME 10.4 fL (9.2-13.0); MONOCYTES 8.2 %; NEUTROPHILS ABSOLUTE 17.13 10/3/uL (2.02-8.40); PLATELET COUNT 129 10/3/uL (150-400); RBC DISTRIBUTION WIDTH 14.4 % (12.0-16.0); RED CELL COUNT 4.87 10/6/uL (4.7-6.1); WHITE BLOOD CELLS 19.5 10/3/uL (4.5-10.5)
[2017-02-17 20:59] LABS: MANUAL DIFF NO %
[2017-02-17 21:12] LABS: INTERNATIONAL NORMAL RATI 1.3 UNITS (-); PARTIAL THROMBO TIME 24.6 SEC (22.5-37.2); PROTIME (NOT ORD) 15.6 SEC (12.0-14.5)
[2017-02-18 01:31] LABS: BE (BASE EXCESS) -3.6 MEQ/L (0 +/- 2.5); HCO3 (ACTUAL BICARBONATE) 20.1 MEQ/L (23-27); INSTRUMENT SERIAL # 8083; PCO2 (CO2 TENSION) 33 MMHG (35-45); PO2 (O2 TENSION) 80 MMHG (79-93); pH 7.41 (7.37-7.43)
[2017-02-18 01:32] LABS: ALLENS TEST Pos; CARBOXYHEMOGLOBIN 0.8 % (0-3); DEVICE NC; HEMOBLOGIN CONTENT 14.4 G/DL (14-18); METHEMOGLOBIN 0.3 % (0-3); O2 CONTENT 19.2 VOL% (18-24); OPERATOR ID 30013; SAMPLE Arterial
[2017-02-18 04:08] LABS: BASOPHILS 0.1 %; BASOPHILS ABSOLUTE 0.02 10/3/uL (0.0-0.16); EOSINOPHILS 0 %; HEMATOCRIT 40.5 % (40.0-51.0); HEMOGLOBIN 14.2 g/dL (13.6-17.8); IMMATURE GRANULOCYTES 0.5 %; IMMATURE GRANULOCYTES ABSOLUTE 0.11 10/3/uL (0.0-0.11); LYMPHOCYTES 4.5 %; LYMPHOCYTES ABSOLUTE 0.92 10/3/uL (0.67-4.30); MEAN CORPUS HGB CONC 35.1 g/dL (32.0-36.0); MEAN CORPUSCULAR HEMOGLOB 31.8 pg (26.0-34.0); MEAN CORPUSCULAR VOLUME 90.8 fL (80-100); MEAN PLATELET VOLUME 10.4 fL (9.2-13.0); MONOCYTES 9.3 %; MONOCYTES ABSOLUTE 1.88 10/3/uL (0.21-1.20); NEUTROPHILS 85.6 %; PLATELET COUNT 130 10/3/uL (150-400); RBC DISTRIBUTION WIDTH 14.1 % (12.0-16.0); RED CELL COUNT 4.46 10/6/uL (4.7-6.1); WHITE BLOOD CELLS 20.2 10/3/uL (4.5-10.5)
[2017-02-18 04:11] LABS: MANUAL DIFF NO %
[2017-02-18 04:17] LABS: INTERNATIONAL NORMAL RATI 1.4 UNITS (-); PROTIME (NOT ORD) 16.8 SEC (12.0-14.5)
[2017-02-18 04:31] LABS: A/G RATIO 0.8 (0.7-1.9); ALBUMIN 2.6 G/DL (3.5-5.0); ALKALINE PHOSPHATASE 56 U/L (45-117); BUN (BLOOD UREA NITROGEN) 49 MG/DL (6-23); CALCIUM, SERUM 9.3 MG/DL (8.5-10.4); CHLORIDE, SERUM 122 MMOL/L (96-112); CO2 (CARBON DIOXIDE) 26 MMOL/L (24-34); GFR AFRICAN AMERICAN 40 ML/MIN (>=60); GFR NON AFRICAN AMERICAN 34 ML/MIN (>=60); GLOBULIN 3.2 G/DL (2.5-4.1); GLUCOSE, SERUM 138 MG/DL (60-99); POTASSIUM, SERUM 3.5 MMOL/L (3.5-5.3); SGOT(AST) 48 U/L (5-40); SGPT(ALT) 73 U/L (5-65); SODIUM, SERUM 154 MMOL/L (135-148); TOTAL BILIRUBIN 1.2 MG/DL (0-1.2); TOTAL PROTEIN 5.8 G/DL (6.0-8.5)
[2017-02-18 08:57] LABS: ALLENS TEST Pos; BE (BASE EXCESS) -3.4 MEQ/L (0 +/- 2.5); CARBOXYHEMOGLOBIN 0.6 % (0-3); DEVICE NC; HCO3 (ACTUAL BICARBONATE) 20.2 MEQ/L (23-27); HEMOBLOGIN CONTENT 14.2 G/DL (14-18); INSTRUMENT SERIAL # 8083; METHEMOGLOBIN 0.3 % (0-3); O2 CONTENT 18.6 VOL% (18-24); OPERATOR ID 14947; PCO2 (CO2 TENSION) 32 MMHG (35-45); PO2 (O2 TENSION) 72 MMHG (79-93); SAMPLE Arterial; pH 7.42 (7.37-7.43)
[2017-02-18 15:06] LABS: BUN (BLOOD UREA NITROGEN) 50 MG/DL (6-23); CALCIUM, SERUM 9.3 MG/DL (8.5-10.4); CHLORIDE, SERUM 126 MMOL/L (96-112); CO2 (CARBON DIOXIDE) 22 MMOL/L (24-34); CREATININE 2.02 MG/DL (0.70-1.30); GFR AFRICAN AMERICAN 37 ML/MIN (>=60); GFR NON AFRICAN AMERICAN 32 ML/MIN (>=60); GLUCOSE, SERUM 118 MG/DL (60-99)
[2017-02-18 15:08] LABS: POTASSIUM, SERUM 4.3 MMOL/L (3.5-5.3); SODIUM, SERUM 158 MMOL/L (135-148)
== END 2017-02-18 20:30 | disposition expired | DRG 64 ==
LOC: ER 21:48 → 7NO 01-31 03:08 → IMCU 02-15 13:43
PROVIDERS: Hospitalist; Internal Medicine Infectious Disease; Internal Medicine Nephrology; Nurse Practitioner; Psychiatry & Neurology Neurology; Registered Nurse; Student in an Organized Health Care Education/Training Program
PROC: 009U3ZX Drainage of Spinal Canal, Percutaneous Approach, Diagnostic (ICD-10-PCS; principal; 2017-02-11)
PROC: 02HV33Z Insertion of Infusion Device into Superior Vena Cava, Percutaneous Approach (ICD-10-PCS; 2017-02-14)
PROC: 4A02X4A Measurement of Cardiac Electrical Activity, Guidance, External Approach (ICD-10-PCS; 2017-02-14)
PROC: 009U3ZX Drainage of Spinal Canal, Percutaneous Approach, Diagnostic (ICD-10-PCS; 2017-02-16)
DX: I63.9 Cerebral infarction, unspecified (principal); B45.1 Cerebral cryptococcosis; I21.4 Non-ST elevation (NSTEMI) myocardial infarction; J96.01 Acute respiratory failure with hypoxia; N17.9 Acute kidney failure, unspecified; G93.41 Metabolic encephalopathy; I48.0 Paroxysmal atrial fibrillation; E86.0 Dehydration; G91.0 Communicating hydrocephalus; I12.9 Hypertensive chronic kidney disease with stage 1 through stage 4 chronic kidney disease, or unspecified chronic kidney disease; B96.89 Other specified bacterial agents as the cause of diseases classified elsewhere; H81.319 Aural vertigo, unspecified ear; I25.10 Atherosclerotic heart disease of native coronary artery without angina pectoris; K21.9 Gastro-esophageal reflux disease without esophagitis; I25.5 Ischemic cardiomyopathy; Z51.5 Encounter for palliative care; N18.3 Chronic kidney disease, stage 3 (moderate); Z95.5 Presence of coronary angioplasty implant and graft
CPT/HCPCS: 36569; 36600; 62270; 70450; 70496; 70498; 70544; 70551; 70553; 71010; 74000; 74230; 76775; 77003; 80048; 80053; 80069; 80076; 80299; 81001; 82140; 82533; 82570; 82607; 82746; 82805; 82945; 82962; 83735; 83880; 84100; 84132; 84134; 84145; 84157; 84300; 84439; 84443; 84484; 84540; 85014; 85018; 85025; 85610; 85730; 86592; 87040; 87045; 87046; 87046-59; 87070; 87077; 87086; 87102; 87186; 87205; 87210; 87327; 87328; 87329; 87389; 87493; 87493-59; 87556; 87641; 87899; 87899-59; 88112; 89051; 89055; 92523-GN; 92610-GN; 92611-GN; 93005; 95816; 96374; 97110-GO; 97110-GP; 97112-GO; 97163-GP; 97166-GO; 97530-GO; 97530-GP; 97535-GO; 99285; A9270-GY; C1751; C8929; C9113; G8978-CL-GP; G8979-CK-GP; G8987-CK-GO; G8988-CK-GO; G9162-CN-GN; G9163-CL-GN; J0289; J0360; J0780; J1450; J1885; J1953; J2405; J2543; J2765; J3430; Q9957; Q9967